=== PATIENT | female | born 1945 | race Caucasian/White ===

== ENCOUNTER 2023-01-03 11:39 | Emergency (ER) | payer MEDICARE, OTHER, SELFPAY ==
[2023-01-03] VITALS (14 sets, daily range): BP systolic 139–166; BP diastolic 64–97; PULSE 58–68; RESP 16; TEMP 36.6; O2SAT 97–100; BMI 23.2
--- NOTE | 2023-01-03 11:50 | ED.GENADULT ---
HPI - General Adult General Time Seen by Provider: 11:50 Date Seen: 01/03/23 Chief complaint: Chest Pain Stated complaint: Chest/left arm pain Time Seen by Provider: 01/03/23 11:42 Source: patient, RN notes reviewed and old records reviewed Mode of arrival: ambulatory Limitations: no limitations History of Present Illness HPI narrative: 77-year-old female history of high cholesterol and hypertension who presents today with chest pain. Patient presents with about 1 week of intermittent chest pain that is on the left side and radiating to the left neck a little bit in the left shoulder, accompanied by shortness of breath. No nausea vomiting. Last for several hours at a time. Seems to be worse in the evenings, not related to eating, walking, or breathing. Denies headache, lower extremity swelling. Has not taken anything for her symptoms. No prior cardiac history. Related Data Home Medications Medication Instructions Recorded Confirmed atorvastatin 40 mg tablet 40 mg PO DAILY 01/03/23 01/03/23 losartan 50 mg tablet 50 mg PO DAILY 01/03/23 01/03/23 metoprolol tartrate 50 mg tablet 50 mg PO BID 01/03/23 01/03/23 mirtazapine 15 mg tablet 15 mg PO BID 01/03/23 01/03/23 potassium chloride 20 mEq 20 meq PO DAILY 01/03/23 01/03/23 tablet,extended release(part/cryst) Allergies Allergy/AdvReac Type Severity Reaction Status Date / Time penicillin G Allergy Unknown Verified 01/03/23 11:48 Review of Systems Status of ROS: Reports: 10 or more systems reviewed and unremarkable except as noted in History and below Exam Narrative: Exam Narrative: General: Well-developed and well-nourished, no acute distress Head: Atraumatic and normocephalic Eyes: Pupils are equal reactive, extraocular motions intact, conjunctiva clear ENT: External nose and ears are normal, posterior pharynx without erythema or exudate Neck: No midline cervical tenderness, full spontaneous range of motion the neck, trachea midline, no adenopathy Heart: Regular rate and rhythm no murmurs or thrills Lungs: Clear to auscultation bilaterally without wheezes or crackles Abdomen: Soft, nontender, nondistended with active bowel sounds Musculoskeletal: No tenderness, deformity, or edema Neurologic: Awake, alert, and oriented x3, no gross focal neurologic deficits, cranial nerves intact as tested Psych: Mood and affect are appropriate Skin: No rashes Const: Vital Signs, click to edit/add: Vital Signs - 24 hr 01/03/23 11:49 01/03/23 12:04 01/03/23 12:05 Temperature 97.8 F Pulse Rate 64 59 L Pulse Rate [Pulse Oximeter] 68 Respiratory Rate 16 Blood Pressure 148/97 H Blood Pressure [Le ft Upper Arm] 166/78 H Pulse Oximetry 99 97 98 01/03/23 12:15 01/03/23 12:30 01/03/23 12:32 Temperature Pulse Rate 64 60 61 Pulse Rate [Pulse Oximeter] Respiratory Rate Blood Pressure 146/64 H Blood Pressure [Le ft Upper Arm] Pulse Oximetry 98 98 98 Course Course ED Course: Patient seen examined, prior records reviewed. Patient presents today with mid chest pain that radiates into the left neck and shoulder. Not associated with activity, accompanied by shortness of breath and some lightheadedness. She denies recent illness, nausea vomiting. EKG is reassuring, symptoms are not reproducible. Patient has risk factors of age, hypertension, hyperlipidemia. Labs ordered if these are negative patient will need to be referred for stress test. Reevaluation(s) Time of Reevaluation #1: 13:17 Reevaluation #1: Labs independently interpreted by me with reassuring CBC, normal basic panel, negative troponin, normal BNP. Chest x-ray independently interpreted by me does not demonstrate any acute findings. Patient presents with chest pain accompanied by lightheadedness and shortness of breath with risk factors for acute coronary syndrome including hypertension and hyperlipidemia, HEART score 4. Discussed admission versus discharge with outpatient stress test with the patient. We discussed 6-week MACE risk of 12-16%. Patient would like to go home with follow-up. Given the fact that she has had 1 week of symptoms with negative troponin, repeat troponin will not be performed today and patient can be discharged. She should continue her normal medications and will be prescribed nitroglycerin as well. Vital Signs Vital signs: Initial Vital Signs Temperature 97.8 F 01/03/23 11:49 Temperature Source Temporal Artery Scan 01/03/23 11:49 Pulse Rate 68 01/03/23 11:49 Respiratory Rate 16 01/03/23 11:49 Blood Pressure 166/78 H 01/03/23 11:49 Blood Pressure Mean 107 H 01/03/23 11:49 Blood Pressure Position Supine 01/03/23 11:49 Pulse Oximetry 99 01/03/23 11:49 Vital Signs Temperature 97.8 F 01/03/23 11:49 Pulse Rate 68 01/03/23 11:49 Respiratory Rate 16 01/03/23 11:49 Blood Pressure 166/78 H 01/03/23 11:49 Pulse Oximetry 99 01/03/23 11:49 Temperature 97.8 F 01/03/23 11:49 Pulse Rate 61 01/03/23 12:32 Respiratory Rate 16 01/03/23 11:49 Blood Pressure 146/64 H 01/03/23 12:32 Pulse Oximetry 98 01/03/23 12:32 Medical Decision Making Medical Records Medical records reviewed: Yes I reviewed the patient's medical records Lab Data Lab results reviewed: Yes I reviewed the patient's lab results Labs: Lab Results 01/03/23 01/03/23 Range/Units 12:00 12:24 WBC 5.21 (4.50-11.00) K/uL RBC 3.29 L (4.00-5.20) m/uL Hgb 11.6 L (12.0-16.0) gm/dL Hct 34.6 (33.0-51.0) % MCV 105 H (80-100) fL MCH 35 H (26-34) pg MCHC 34 (32-36) gm/dL RDW Coeff of Marta 12.1 (11.5-15.5) % Plt Count 215 (140-440) K/uL Neut % (Auto) 60.6 (42.0-72.0) % Lymph % (Auto) 24.2 (20-44) % [place] % (Auto) 11.3 H (0.0-11.0) % Eos % (Auto) 2.5 (0.0-7.0) % Baso % (Auto) 1.2 (0.0-3.0) % Neut # (Auto) 3.16 (1.7-7.0) K/uL Lymph # (Auto) 1.26 (0.90-2.90) K/uL [place] # (Auto) 0.60 (0.00-0.90) K/UL Eos # (Auto) 0.13 (0.00-0.50) K/uL Baso # (Auto) 0.06 (0.00-0.30) K/uL Abs Immat Gran (auto) 0.01 (0.00-0.30) K/uL Imm/Tot Granulo (auto) 0.2 % Diff Slide Review Acceptable Review (Acceptable) Sodium 135 (135-149) mmol/L Potassium 4.1 (3.6-5.1) mmol/L Chloride 100 (96-114) mmol/L Carbon Dioxide 24 (20-32) mmol/L Anion Gap 11 (7-15) mEq/L BUN 10 (7-30) mg/dL Creatinine 0.6 (0.5-1.5) mg/dL Estimated Creat Clear 40.03 Estimated GFR 94 ml/min Glucose 108 (60-115) mg/dL Calcium 9.3 (8.4-10.6) mg/dL NT-Pro-B Natriuret Pep 146 pg/mL POC Troponin I 0.01 (0.01-0.04) ng/ml ECG Data Attestation: I personally reviewed and interpreted this ECG as follows: Prior ECG tracings: not available for review Interpretation: EKG independently interpreted by me performed at 10:41 a.m. demonstrates sinus rhythm with sinus arrhythmia, first-degree AV block, rate 62, no acute ST elevations or depressions, normal intervals, normal axis, QTC 412. No prior for comparison. Discharge Plan Discharge Clinical Impression: Chest pain, Hypertension Patient Disposition: Home, Self-Care Condition: Stable Instructions: Chest Pain (DC) Additional Instructions: Continue your usual medications. Follow-up with your primary care doctor. The hospital will call you to schedule your stress test. Return to the emergency department if you have worsening chest pain or other concerning symptoms. Activity Level: No strenuous activity Discharge Diet: Low Fat/Low Cholesterol Prescriptions: No Action losartan 50 mg tablet 50 mg PO DAILY atorvastatin 40 mg tablet 40 mg PO DAILY metoprolol tartrate 50 mg tablet 50 mg PO BID mirtazapine 15 mg tablet 15 mg PO BID potassium chloride 20 mEq tablet,ER particles/crystals 20 meq PO DAILY Follow Up/Referrals: Avinash Hanson MD [Referring] - Stand Alone Forms: [employer] Info Instructions
--- NOTE | 2023-01-03 12:01 | CRLHL7_ITS ---
For Patients: As a result of the Century Cures Act, medical imaging exams and procedure reports are released immediately into your electronic medical record. You may view this report before your referring provider. If you have questions, please contact your health care provider. Indication: Chest pain Comparison: None available. Technique: Single AP view chest Findings: There is hyperinflation and chronic interstitial change. There is no focal consolidation, effusion, or pneumothorax. The cardiomediastinal silhouette is within normal limits. The bony thorax is grossly intact. Impression: No acute cardiopulmonary abnormality. Dictated by Toni Dudley MD @ 01/03/2023 1:09:50 PM (Electronically Signed)
[2023-01-03] MEDS: ASPIRIN 81 MG TAB.CHEW 162 MG PO (12:10)
[2023-01-03 12:40] LABS: Basophils Absolute Auto 0.06 K/uL (0.00-0.30); Basophils Percent Auto 1.2 % (0.0-3.0); Eosinophils Absolute Auto 0.13 K/uL (0.00-0.50); Eosinophils Percent Auto 2.5 % (0.0-7.0); Hematocrit 34.6 % (33.0-51.0); Hemoglobin* 11.6 gm/dL (12.0-16.0); Immature Granulocytes Abs Auto 0.01 K/uL (0.00-0.30); Immature Granulocytes Pct Auto 0.2 %; Lymphocytes Absolute Auto 1.26 K/uL (0.90-2.90); Lymphocytes Percent Auto 24.2 % (20-44); Mean Corpuscular HGB Conc 34 gm/dL (32-36); Mean Corpuscular Hemoglobin 35 pg (26-34); Mean Corpuscular Volume 105 fL (80-100); Monocytes Percent Auto 11.3 % (0.0-11.0); Neutrophils Absolute Auto 3.16 K/uL (1.7-7.0); Neutrophils Percent Auto 60.6 % (42.0-72.0); Platelet Count* 215 K/uL (140-440); RDW Coefficient of Variation % 12.1 % (11.5-15.5); Red Blood Count 3.29 m/uL (4.00-5.20); White Blood Count* 5.21 K/uL (4.50-11.00)
[2023-01-03 12:42] LABS: Slide Review Reflex Yes
[2023-01-03 12:43] LABS: Troponin, Point-of-Care* 0.01 ng/ml (0.01-0.04)
[2023-01-03 12:51] LABS: Chloride* 100 mmol/L (96-114); Potassium* 4.1 mmol/L (3.6-5.1); Sodium* 135 mmol/L (135-149)
[2023-01-03 12:54] LABS: Anion Gap 11 mEq/L (7-15); Blood Urea Nitrogen* 10 mg/dL (7-30); Carbon Dioxide* 24 mmol/L (20-32); Creatinine* 0.6 mg/dL (0.5-1.5); Est. Creatinine Clearance* 40.03; Estimated Glomerular Filt Rate 94 ml/min
[2023-01-03 12:55] LABS: Calcium* 9.3 mg/dL (8.4-10.6); Glucose* 108 mg/dL (60-115)
[2023-01-03 13:03] LABS: Slide Review Acceptable Review (Acceptable)
[2023-01-03 13:04] LABS: NT Pro B Type NatriureticPept* 146 pg/mL
== END 2023-01-03 14:04 | disposition home or self-care (01) ==
PROVIDERS: Emergency Provider Family Medicine; PCP Family Medicine
DX: R07.9 Chest pain, unspecified (principal); I10 Essential (primary) hypertension
CPT/HCPCS: 36415; 71045; 80048; 83880; 84484; 85025; 93005; 99284; 99285; A9270

== ENCOUNTER 2023-01-06 00:33 | Emergency (ER) | payer MEDICARE, OTHER, SELFPAY ==
--- NOTE | 2023-01-06 00:41 | ED.GENADULT ---
HPI - General Adult General Time Seen by Provider: 00:41 Date Seen: 01/06/23 Chief complaint: Extremity Pain/Injury, Upper Stated complaint: Pain on L side into her arm Time Seen by Provider: 01/06/23 00:41 Source: patient, RN notes reviewed and old records reviewed Mode of arrival: ambulatory Limitations: no limitations History of Present Illness HPI narrative: 77-year-old female who presents today with chest pain and arm pain. Patient was seen for this same 3 days ago, had negative cardiac evaluation at that time and was referred for stress test. Returns today with ongoing symptoms mostly in the left arm today. She notes pain in the left trapezius and shoulder area that radiates down the arm. She denies weakness or coordination problems of the arm. She does not know left-sided chest pain today. She has no shortness of breath nausea vomiting. She took aspirin for this with no improvement. She does know she fell on the shoulder about a month ago and thinks the pain started than. Related Data Home Medications Medication Instructions Recorded Confirmed atorvastatin 40 mg tablet 40 mg PO DAILY 01/03/23 01/03/23 losartan 50 mg tablet 50 mg PO DAILY 01/03/23 01/03/23 metoprolol tartrate 50 mg tablet 50 mg PO BID 01/03/23 01/03/23 mirtazapine 15 mg tablet 15 mg PO BID 01/03/23 01/03/23 potassium chloride 20 mEq 20 meq PO DAILY 01/03/23 01/03/23 tablet,extended release(part/cryst) Previous Rx's Medication Instructions Recorded gabapentin 100 mg capsule 100 mg PO TID #90 caps 01/06/23 methylprednisolone 4 mg tablets in See Rx Instructions PO .COMPLEX 01/06/23 a dose pack (Medrol (Compa)) #21 ea Allergies Allergy/AdvReac Type Severity Reaction Status Date / Time penicillin G Allergy Unknown Verified 01/03/23 11:48 [facility] Social History Smoking Status: Never smoker How often do you have a drink containing alcohol: 2-3 times a week How often do you have six or more drinks on one occasion: Never AUDIT-C Alcohol total score: 3 Non-prescribed substance use: denies use Exam Narrative: Exam Narrative: General: well nourished , NAD Head: Atraumatic and normocephalic ENT: External ears and external nose are normal Eyes: Conjunctiva clear, pupils are equal reactive, external ocular motions are intact Neck: Full spontaneous range of motion of the neck Lungs: No respiratory distress Musculoskeletal: No tenderness or deformity Neurologic: Diffuse left trapezius tenderness. Pain in the left shoulder with internal and external rotation, forward flexion, and abduction. No weakness. Skin: No rashes Psych: Mood and affect are appropriate Const: Vital Signs, click to edit/add: Vital Signs - 24 hr 01/06/23 01:04 Temperature 98 F Pulse Rate [Pulse Oximeter] 69 Respiratory Rate 16 Blood Pressure [Ri ght Upper Arm] 190/92 H Pulse Oximetry 98 Oxygen Delivery Me thod Room Air Course Course ED Course: Patient seen and examined, prior records are reviewed. Patient comes in today with left shoulder, neck, and arm pain. She was seen a couple days ago with chest pain that she said radiated in the left side of her neck and left shoulder, however her symptoms today do not include the chest and patient denies associated shortness of breath or lightheadedness. She has tenderness of left trapezius, left shoulder on exam. She has some limited motion of the left shoulder due to pain. Symptoms are most consistent with rotator cuff injury today. X-ray of the left shoulders or ordered. Patient is given Toradol to help with her pain, anticipate discharge with Solu-Medrol and gabapentin, follow-up this week for stress test related to her prior visit. Reevaluation(s) Time of Reevaluation #1: 01:42 Reevaluation #1: Shoulder x-ray interpreted lead interpreted by me does not demonstrate any acute findings. Patient is stable for discharge with outpatient follow-up with orthopedics and for her stress test. Vital Signs Vital signs: Initial Vital Signs Temperature 98 F 01/06/23 01:04 Temperature Source Temporal Artery Scan 01/06/23 01:04 Pulse Rate 69 01/06/23 01:04 Respiratory Rate 16 01/06/23 01:04 Blood Pressure 190/92 H 01/06/23 01:04 Blood Pressure Mean 124 H 01/06/23 01:04 Blood Pressure Position Sitting 01/06/23 01:04 Pulse Oximetry 98 01/06/23 01:04 Oxygen Delivery Method Room Air 01/06/23 01:04 Vital Signs Temperature 98 F 01/06/23 01:04 Pulse Rate 69 01/06/23 01:04 Respiratory Rate 16 01/06/23 01:04 Blood Pressure 190/92 H 01/06/23 01:04 Pulse Oximetry 98 01/06/23 01:04 Oxygen Delivery Method Room Air 01/06/23 01:04 Temperature 98 F 01/06/23 01:04 Pulse Rate 69 01/06/23 01:04 Respiratory Rate 16 01/06/23 01:04 Blood Pressure 190/92 H 01/06/23 01:04 Pulse Oximetry 98 01/06/23 01:04 Oxygen Delivery Method Room Air 01/06/23 01:04 Discharge Plan Discharge Clinical Impression: Rotator cuff injury, Brachial plexus neuropathy Patient Disposition: Home, Self-Care Condition: Stable Instructions: Cervical Radiculopathy (ED), Rotator Cuff Injury Exercises (DC) Additional Instructions: Take gabapentin as prescribed, take Solu-Medrol as prescribed. Call the orthopedic clinic for follow-up this week at [phone] Activity Level: Activity as Tolerated Discharge Diet: Regular Prescriptions: New methylprednisolone [Medrol (Compa)] 4 mg tablets,dose pack See Rx Instructions .ROUTE .COMPLEX Qty: 21 0RF Rx Instructions: orally per package directions gabapentin 100 mg capsule 100 mg PO TID Qty: 90 0RF Rx Instructions: If pain is not well controlled with 1 capsule 3 times a day, and the medication is not making you too sleepy, you may increase to 2 tablets 3 times a day No Action losartan 50 mg tablet 50 mg PO DAILY atorvastatin 40 mg tablet 40 mg PO DAILY metoprolol tartrate 50 mg tablet 50 mg PO BID mirtazapine 15 mg tablet 15 mg PO BID potassium chloride 20 mEq tablet,ER particles/crystals 20 meq PO DAILY Follow Up/Referrals: Nancy Escudero DO [Primary Care Provider] - Stand Alone Forms: [employer] Info Instructions
[2023-01-06 01:04] VITALS: BP 190/92; PULSE 69; RESP 16; TEMP 36.6; O2SAT 98; BMI 23.2
--- NOTE | 2023-01-06 01:14 | CRLHL7_ITS ---
For Patients: As a result of the Century Cures Act, medical imaging exams and procedure reports are released immediately into your electronic medical record. You may view this report before your referring provider. If you have questions, please contact your health care provider. Indication: Left shoulder pain. Technique: Left shoulder 3 views. Comparison: None. Findings: Bones: Alignment is normal. No fractures or bone lesions. Joint spaces: No significant degenerative changes. Soft tissues: Unremarkable. Impression: Unremarkable left shoulder. No specific finding to explain pain. Dictated by Chilo Castrejon MD @ 01/06/2023 1:56:56 AM (Electronically Signed)
[2023-01-06] MEDS: KETOROLAC 30 MG/ML inj 15 MG IM (01:50)
[2023-01-06] MEDS: LIDOCAINE 5% PATCH 2 PATCH TRANSDERMA (01:54)
== END 2023-01-06 02:55 | disposition home or self-care (01) ==
LOC: ED 01:35
PROVIDERS: Emergency Provider Family Medicine; PCP Family Medicine
DX: G54.0 Brachial plexus disorders (principal); S46.012A Strain of muscle(s) and tendon(s) of the rotator cuff of left shoulder, initial encounter
CPT/HCPCS: 73030; 96372; 99284; A9270; J1885

== ENCOUNTER 2023-01-14 00:13 | Emergency (ER) | payer MEDICARE, OTHER, SELFPAY ==
[2023-01-14 00:20] VITALS: O2SAT 98
[2023-01-14 00:27] VITALS: BP 172/75; PULSE 68; RESP 18; TEMP 36.8; O2SAT 99; BMI 21.7
--- NOTE | 2023-01-14 00:35 | ED_ITS ---
HPI - General Adult General Chief complaint: Shoulder Injury/Pain Stated complaint: left shoulder arm pain Time Seen by Provider: 01/14/23 00:20 History of Present Illness HPI narrative: CC: Left Neck/ Shoulder Pain pt. has been seen here twice for same symptoms. worried she might be having a heart attack . denies n/v, diarrhea, fevers. 77-year-old woman presenting to the emergency department with concern of pain moving into her left neck and shoulder. Underlying history of cervical spinal arthrodesis and radiculopathy. It sounds that she is concerned that might be having a heart attack. She is not experiencing shortness of breath. No nausea. Does not have known cardiovascular disease. 1st question however posed to me is that she notes that has an MRI of the neck pending this week Saturday; in 3 days. She is wondering if can be modified to include left shoulder. She notes how she had a fracture of the right shoulder area (clavicle?) and ultimately had muscle growing between and it was missed until MRI. Sounds like Orthopedics placed the order for the MRI. Has been taking gabapentin up to 200 mg 3 times a day which has not been helping with pain. Also acetaminophen? Related Data Home Medications Medication Instructions Recorded Confirmed atorvastatin 40 mg tablet 40 mg PO DAILY 01/03/23 01/18/23 losartan 50 mg tablet 50 mg PO DAILY 01/03/23 01/18/23 metoprolol tartrate 50 mg tablet 50 mg PO BID 01/03/23 01/18/23 mirtazapine 15 mg tablet 15 mg PO BID 01/03/23 01/18/23 potassium chloride 20 mEq 20 meq PO DAILY 01/03/23 01/18/23 tablet,extended release(part/cryst) acetaminophen 500 mg tablet 500 mg PO Q6H PRN 01/18/23 01/18/23 (Tylenol Extra Strength) Previous Rx's Medication Instructions Recorded gabapentin 300 mg capsule 300 mg PO TID #60 caps 01/18/23 methylprednisolone 4 mg tablets in 4 mg PO PER PKG DIR #21 ea 01/24/23 a dose pack (Medrol (Compa)) Allergies Allergy/AdvReac Type Severity Reaction Status Date / Time Penicillins Allergy Mild Rash Verified 01/18/23 08:22 Review of Systems Status of ROS: Reports: 6 or more systems reviewed and unremarkable except as noted in History and below PFSH [facility] Medical History GI (gastrointestinal bleed) (2006) ?K92.2 - Gastrointestinal hemorrhage, unspecified (ICD-10) Benign positional vertigo ?H81.10 - Benign paroxysmal vertigo, unspecified ear (ICD-10) Rheumatoid arthritis ?M06.9 - Rheumatoid arthritis, unspecified (ICD-10) Surgical History Status post laparoscopic [place] fundoplication (~1989) ?Z98.890 - Other specified postprocedural states (ICD-10) History of arthroplasty of finger of left hand ?Z96.692 - Finger-joint replacement of left hand (ICD-10) History of arthroplasty of finger of right hand ?Z96.691 - Finger-joint replacement of right hand (ICD-10) History of bilateral cataract extraction ?Z98.41 - Cataract extraction status, right eye (ICD-10) ?Z98.42 - Cataract extraction status, left eye (ICD-10) History of excision of mass (06/2012) ?Z98.890 - Other specified postprocedural states (ICD-10) History of lumbar fusion (08/2012) ?Z98.1 - Arthrodesis status (ICD-10) History of hysterectomy ?Z90.710 - Acquired absence of both cervix and uterus (ICD-10) History of arthroscopy of right knee (02/2009) ?Z98.890 - Other specified postprocedural states (ICD-10) 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) ?Z96.651 - Presence of right artificial knee joint (ICD-10) History of esophagogastroduodenoscopy (EGD) (05/2007) ?Z98.890 - Other specified postprocedural states (ICD-10) History of cervical spinal arthrodesis (2001) ?Z98.1 - Arthrodesis status (ICD-10) History of laparoscopic cholecystectomy (07/10/13) ?Z90.49 - Acquired absence of other specified parts of digestive tract (ICD- 10) Social History Smoking Status: Never smoker How often do you have a drink containing alcohol: 2-3 times a week How often do you have six or more drinks on one occasion: Never AUDIT-C Alcohol total score: 3 Non-prescribed substance use: denies use Exam Narrative: Exam Narrative: Very pleasant. Seems little uncomfortable. Well-perfused peripherally. Rotation of her neck to about 30? to the left does cause more discomfort into the right shoulder/trapezial musculature. She is just a little weaker belting inspector strength on the left versus the right. DTRs were not tested. Symmetrical musculature. Lungs are clear. Heart in regular rate and rhythm. Left shoulder exam is without swelling or erythema. As she abduct to 90? begins to have more pain and assist with trapezius. Const: Vital Signs, click to edit/add: Vital Signs - 24 hr 01/14/23 00:20 01/14/23 00:27 01/14/23 02:41 Temperature 98.2 F 98.2 F Pulse Rate [Right Pulse Oximeter] 68 68 Respiratory Rate 18 18 Blood Pressure [Ri ght Upper Arm] 172/75 H 132/68 Pulse Oximetry 98 99 99 Oxygen Delivery Me thod Room Air Room Air 01/14/23 02:42 Temperature 98.2 F Pulse Rate [Right Pulse Oximeter] 68 Respiratory Rate 18 Blood Pressure [Ri ght Upper Arm] 132/68 Pulse Oximetry Oxygen Delivery Me thod Documenting provider has reviewed patient's vital signs: yes Course Vital Signs Vital signs: Initial Vital Signs Pulse Oximetry 98 01/14/23 00:20 Vital Signs Pulse Oximetry 98 01/14/23 00:20 Temperature 98.2 F 01/14/23 02:42 Pulse Rate 68 01/14/23 02:42 Respiratory Rate 18 01/14/23 02:42 Blood Pressure 132/68 01/14/23 02:42 Pulse Oximetry 99 01/14/23 02:41 Oxygen Delivery Method Room Air 01/14/23 02:41 Medical Decision Making MDM Narrative Medical decision making narrative: I think this is more cervical radiculopathy than any cardiovascular issue here. EKG reviewed as below. I understand why she might want evaluation of the shoulder as she is describing a missed diagnosis with prior injury on the right side. And she is pending this MRI. Not available at this time of night regardless. She does then ask if maybe she can receive an injection. Injection would be better directed following MRI if necessary. Discussed pain management that she has ready been doing. She does not really want opiates, does not tolerate. I think generally might be more comfortable or able to relax a for neck had some support in the form of soft collar temporarily. See patient discharge plan. Medical Records Medical records reviewed: Yes I reviewed the patient's medical records ECG Data Attestation: I personally reviewed and interpreted this ECG as follows: (Sinus rhythm. Rate of 61. First-degree AV block) Discharge Plan Discharge Clinical Impression: Cervical radiculopathy Patient Disposition: Home, Self-Care Condition: Improved Additional Instructions: I think it is okay to wear this soft collar for comfort here and there and maybe over this next week. If you would like your shoulder imaged in MRI as well, I would call to the provider who ordered the MRI for your neck. They have also evaluated your shoulder I believe. Can take 1 or 2 of your Valium before your MRI as prescribed. Otherwise gabapentin and acetaminophen as discussed. Prescriptions: No Action acetaminophen [Tylenol Extra Strength] 500 mg tablet 500 mg PO Q6H PRN gabapentin 300 mg capsule 300 mg PO TID Qty: 60 0RF losartan 50 mg tablet 50 mg PO DAILY atorvastatin 40 mg tablet 40 mg PO DAILY metoprolol tartrate 50 mg tablet 50 mg PO BID mirtazapine 15 mg tablet 15 mg PO BID potassium chloride 20 mEq tablet,ER particles/crystals 20 meq PO DAILY methylprednisolone [Medrol (Compa)] 4 mg tablets,dose pack 4 mg PO PER PKG DIR Qty: 21 0RF Follow Up/Referrals: Nancy Escudero DO [Primary Care Provider] - Stand Alone Forms: [employer] Info Instructions
[2023-01-14 02:41] VITALS: BP 132/68; PULSE 68; RESP 18; TEMP 36.8; O2SAT 99
[2023-01-14 02:42] VITALS: BP 132/68; PULSE 68; RESP 18; TEMP 36.8
== END 2023-01-14 02:42 | disposition home or self-care (01) ==
PROVIDERS: Emergency Provider Family Medicine; PCP Family Medicine
DX: M54.12 Radiculopathy, cervical region (principal)
CPT/HCPCS: 93005; 94761; 99283; 99284

== ENCOUNTER 2023-01-16 09:27 | Outpatient (CLI) | payer MEDICARE, OTHER, SELFPAY ==
--- NOTE | 2023-01-16 09:45 | MR_ITS ---
[address] [address] Phone:?[phone] Fax:?[phone] Referring Physician Information: Bryon Velez [address] [facility] [address] Phone:?[phone] Fax:?[phone] Patient:Dana Sullivan D.O.B:?1945 Sex:?Female Phone:?[phone] [facility] MRN:?[id number] Exam Date:?01/16/2023 EXAM: MR CERVICAL SPINE WITHOUT CONTRAST 1.5T CLINICAL INFORMATION: Cervical radiculopathy. History of previous fusion surgery. TECHNICAL INFORMATION: T1, T2 FSE, T2 GRE and STIR sagittal sections with T2 GRE and FSE axial sections at selected levels. COMPARISON IMAGES: No comparisons. INTERPRETATION:?Neurologic structures:?A 4 mm focus of increased signal intensity is seen within the central cord at C5. This is associated with cord compression most likely represents an area of cord edema or myelomalacia. No Chiari malformation or syrinx. No intradural mass. Normal vertebral artery flow voids. Alignment:?Spondylosis with lordotic alignment of the cervical vertebrae. T2-3 and T1-2: Normal intervertebral discs and facet joints. No stenosis or impingement. C7-T1: Spondylosis with mild dorsal bulging, moderate left facet arthropathy and no stenosis or impingement. C6-7 and C5-6: Advanced disc degeneration. Mild right and moderate left foraminal stenosis with uncovertebral arthrosis at each level. Facet joints normal. C4-5: Advanced disc degeneration with a 4 mm broad-based dorsal disc protrusion, a 3-4 mm spondylolisthesis, moderate narrowing of the central canal (midline AP diameter 6-7 mm) and mild broad-based ventral/dorsal cord compression. Moderately severe foraminal stenosis bilaterally with uncovertebral arthrosis and moderate bilateral facet arthropathy. C3-4: Moderate to advanced disc degeneration with advanced right and moderate left facet arthropathy and a 1-2 mm right rotatory spondylolisthesis. Mild to moderate central canal stenosis with mild ventral/dorsal cord compression on the left. Severe bilateral foraminal stenosis. C2-3: Spondylosis with mild dorsal bulging, mild bilateral facet arthropathy and no stenosis or impingement. Craniocervical junction:?Mild to moderate degenerative changes anteriorly at C1- 2. No degenerative or erosive changes within the lateral atlantoaxial nor within the cervico-occipital joints. Osseous structures and paraspinous soft tissues:?Sagittal STIR images show mild facet inflammation on the left at C7-T1 with facet subchondral marrow edema. No fracture or avulsion. No osteolytic or destructive bone lesion. No prevertebral soft tissue swelling and no paraspinous soft tissue mass. CONCLUSION: Advanced multilevel disc degeneration with significant findings as follows: 1. Moderate central canal stenosis at C4-5 with a 4 mm broad-based dorsal disc protrusion, a 3-4 mm degenerative spondylolisthesis, mild cord compression and associated myelomalacia. 2. Moderate central canal stenosis at L3-4 with minimal spondylolisthesis and mild ventral/dorsal cord compression on the left. 3. Foraminal stenosis, severe bilaterally at C4-5 and C3-4, and moderate on the left at C6-7 and C5-6. 4. Facet arthropathy, moderate to advanced bilaterally at C4-5 and C3-4, and moderate on the left at C7-T1 with associated facet inflammation at C7-T1. Electronically signed on 01/17/2023 1:05:00 PM by Raman Fuller M.D.
--- NOTE | 2023-01-16 10:30 | MR_ITS ---
[address] [address] Phone:?[phone] Fax:?[phone] Referring Physician Information: Bryon Velez [address] [facility] [address] Phone:?[phone] Fax:?[phone] Patient:Dana Sullivan D.O.B:?1945 Sex:?Female Phone:?[phone] [facility] MRN:?[id number] Exam Date:?01/16/2023 EXAM: MRI EXAMINATION OF THE LEFT SHOULDER CLINICAL INFORMATION: Left shoulder pain. History of injury. History of surgery. Possible rotator cuff tear. TECHNICAL INFORMATION: Coronal STIR as well as axial, sagittal and coronal PD and T2-weighted images acquired. No prior studies for comparison. INTERPRETATION: Bones: There is no Hill-Sachs impaction deformity. No other evidence for an occult fracture or osseous contusion. No other bone marrow edema pattern. Rotator Cuff: Series 9 image 6 as well as series 7 images 8 and 9 demonstrate a 0.6 cm AP by 0.5 cm mediolateral partial-thickness bursal sided tear involving the anterior fibers of the supraspinatus tendon insertion and appearing to involve one half of the tendon fiber thickness. The infraspinatus tendon is intact without tear or significant tendinopathy. The teres minor tendon is intact. The subscapularis tendon is intact. No appreciable rotator cuff muscle belly atrophy. Coracoacromial arch: There is no discrete subacromial osseous spur. The bony acromiohumeral interval is measuring 5 mm. There is no thickening identified of the coracoacromial ligament. Acromioclavicular joint: There is a mild appearance of AC joint DJD. No deformity of the underlying supraspinatus tendon. Mild to moderate thickening and edema signal involves the subacromial/subdeltoid bursa areas. Biceps tendon: The long head biceps tendon is intact and nondisplaced from the bicipital groove. There is a mild appearance of intra-articular tendinopathy. Glenohumeral joint and labrum: No significant glenohumeral joint effusion. No discrete loose body within the joint. Osteochondral surfaces appear relatively preserved. There is tearing identified through the superior aspect of the labrum. There is additional tearing through the posterior inferior aspect of the labrum. No discrete paralabral cyst is identified. CONCLUSION: 1. There is a small partial-thickness bursal sided tear involving the anterior fibers of the supraspinatus tendon insertion, involving one half of the tendon fiber thickness. 2. Mild AC joint DJD with mild to moderate narrowing of the acromiohumeral interval. Mild to moderate subacromial/subdeltoid bursitis. 3. Mild intra-articular long head biceps tendinopathy. 4. No appreciable glenohumeral chondromalacia. 5. There is tearing through the superior and posterior inferior labrum. KES Electronically signed on 01/16/2023 1:40:00 PM by Nate Munoz M.D.
== END 2023-01-16 09:28 | disposition home or self-care (01) ==
LOC: MRI 09:28
PROVIDERS: PCP Family Medicine; Visit Provider Physician Assistant Surgical
DX: M50.321 Other cervical disc degeneration at C4-C5 level (principal); M48.02 Spinal stenosis, cervical region; M48.061 Spinal stenosis, lumbar region without neurogenic claudication; M54.12 Radiculopathy, cervical region; M25.512 Pain in left shoulder; M75.52 Bursitis of left shoulder; M75.102 Unspecified rotator cuff tear or rupture of left shoulder, not specified as traumatic
CPT/HCPCS: 72141; 73221

== ENCOUNTER 2023-01-24 12:40 | Outpatient (CLI) | payer MEDICARE, OTHER, SELFPAY ==
[2023-01-24 13:37] VITALS: BP 150/80; PULSE 107; RESP 16
--- NOTE | 2023-01-24 13:48 | PM.ST ---
Stress Test Note Date Date of test: 01/24/23 Providers Primary care provider: Nancy Escudero Stress test physician: Shahriar Miller Stress Test Note Stress test ordered: Stress Echo Indication for test: Chest pain Results discussion: Patient is a very nice 77-year-old female who presents here for stress echo, as ordered by her physician. Indication for test is chest pain, I discussed with her the risks benefits and side effects and she would like to proceed, cardiac stress test medical history form is reviewed entirely. Pretest EKG shows normal sinus rhythm, with occasional PVCs. No acute ST wave changes are noted. Patient is exercised for a total time of 6 minutes 2nd, she had a metabolic equivalent of 7.3 Mets, with a maximum heart rate of 151 which is 122% of her maximum, test is terminated because of fulfillment of protocol. She did not have any ST wave changes suggestive of ischemia, subjectively she had no chest pain shortness of breath. Conditioning was felt to be good Impression: Negative electrographic portion of stress echo Follow up suggested: Await echo images these will be read by Cardiology, clinical correlation with these will be needed, patient was asymptomatic with no changes on the electrographic portion. She recovered back to normal, and left this testing facility in good condition.
== END 2023-01-24 13:39 | disposition home or self-care (01) ==
LOC: STRESS 12:41
PROVIDERS: PCP Family Medicine; Visit Provider Family Medicine
DX: R07.89 Other chest pain (principal)
CPT/HCPCS: 93016; 93325; 93351

== ENCOUNTER 2023-02-05 09:34 | Outpatient (CLI) | payer MEDICARE, OTHER, SELFPAY ==
--- NOTE | 2023-02-05 10:00 | CRLHL7_ITS ---
For Patients: As a result of the Century Cures Act, medical imaging exams and procedure reports are released immediately into your electronic medical record. You may view this report before your referring provider. If you have questions, please contact your health care provider. INDICATION: Cervical stenosis. COMPARISON: 01/16/2023. TECHNIQUE: Noncontrast CT cervical spine. FINDINGS: Normal facet alignment. Stable degenerative anterolisthesis of C3 on C4 and C4 on C5 measuring approximate 4 mm. No acute fractures. No prevertebral soft tissue swelling. Cervical spondylosis. C1-2: No spinal canal narrowing. C2-3: No spinal canal neural foraminal narrowing. C3-4: Grade 1 anterolisthesis. Disc degeneration. Loss disc height. Posterior disc bulge. No narrowing of spinal canal. Mild narrowing of the right neural foramen. No narrowing of left neural foramen. C4-5: Grade 1 anterolisthesis. Disc degeneration and posterior disc bulge or disc osteophyte complex. Mild narrowing of spinal canal. No narrowing of the right neural foramen. Moderate narrowing of the left neural foramen. C5-6: Advanced disc degeneration. Loss disc height. No spinal canal neural foraminal narrowing. C6-7: Advanced disc degeneration. No narrowing of spinal canal. Mild narrowing of bilateral foramina. C7-T1: No spinal canal or neural foraminal narrowing. Lung apices are clear. IMPRESSION: 1. Straightening of the normal cervical lordosis. Stable degenerative anterolisthesis of C3 on C4 and C4 on C5. Otherwise normal alignment. 2. No fractures. 3. Cervical spondylosis 4. At C4-5, mild narrowing of the spinal canal. Moderate narrowing of the left neural foramina. 5. At C6-7, mild narrowing of the bilateral neural foramina Please note that all CT scans at this facility use dose modulation, iterative reconstruction, and/or weight-based dosing when appropriate to reduce radiation dose to as low as reasonably achievable. Dictated by Antonio Dye MD @ 02/05/2023 1:09:05 PM (Electronically Signed)
== END 2023-02-05 09:35 | disposition home or self-care (01) ==
LOC: CT 09:35
PROVIDERS: PCP Family Medicine; Visit Provider Specialist
DX: M48.02 Spinal stenosis, cervical region (principal); M47.892 Other spondylosis, cervical region; M50.221 Other cervical disc displacement at C4-C5 level; M50.222 Other cervical disc displacement at C5-C6 level
CPT/HCPCS: 72125

== ENCOUNTER 2023-03-04 13:00 | Outpatient (RCR) | payer MEDICARE, OTHER, SELFPAY ==
--- NOTE | 2023-01-09 13:15 | PT.OPEX ---
Please review and sign the attached outpatient physical therapy evaluation completed on 01/09/23. Thank you. PT [facility] Eval PT [facility] Outpatient Eval Start: 01/09/23 07:23 Freq: Status: Active Protocol: Document 01/09/23 07:24 TLQ (Rec: 01/09/23 11:45 TLQ [id number]) E-signed By Mica Echeverria DPT Physical Therapy Outpatient Evaluation Insurance Information Recert Due Date 04/09/23 Insurance Name [employer],Medicare B Medical Diagnosis Radiculopathy, cervical M54.12 Unspecified disorder of synovium and tendon, left shoulder M67.912 Treating Diagnosis Pain in left shoulder M25.512 Cervical radiculopathy M54.12 Muscle weakness M62.81 Referring CHIP Velasquez Subjective Subjective Patient here to address upper arm and neck pain. States she has pain in her left arm but last night was really bad that she almost called the ambulance. Taking Gabapentin since Saturday, states this did not help with her pain last night. Pain in her arm goes from her shoulder all the way down to her hand. States she usually has a good pain tolerance. Also has neck pain that has been going on for quite a while. History of cervical fusion many years ago , unable to recall when. Fell about a month ago, fell flat on her face after tripping on a cement block at the grocery store, this is when her left arm pain began. Has fallen a few additional times since. Arm pain is worst at night, unable to recall any specific movements of her arm that reproduce pain. Prefers to sleep on her back or on her left side, tries sleeping with her arm out to the side. Unable to sleep more than a few hours per night due to pain in her LUE. Gets numbness in her arm, feels heavy to lift at the time of today's eval. Reports shoulder/neck pain bothers her more than the pain/numbness in her L hand. Patient has a stress echo scheduled for 01/24/23. Also has an MRI scheduled of cervical spine on 01/16/23. Imaging: X-ray of L shoulder performed at [facility] on 01/06/23 with the following impression Unremarkable left shoulder. No specific finding to explain pain. X-ray of cervical spine also performed on at [facility], does not yet have a radiology report, orthopedic note reported Significant spondylitic changes to the cervical spine. PMHx: cervical fusion, depression, hypertension, arthritis Pain Comments at best: 5/10 at worst: 10/10, at night location: [facility] Date of Last Physician Visit 01/08/23 Current Work Status Retired Preferred Name Xin Precautions Therapy Limitations/Systems Review Not Limited Objective Other/Pertinent Objective Cervical ROM: flexion 22 deg, extension 25 deg, lateral flexion 15 deg B, rotation L 25 deg/R 20 deg L shoulder AROM: flexion 75 deg, cervical/ shoulder pain abduction 55 deg, cervical/ shoulder pain internal rotation S1, painful external rotation unable to reach occiput, pain L shoulder PROM: WFL for flexion and abduction, muscle guarding present LUE sensation: intact to light touch TTP on L: cervical extensors, UT, supraspinatus, infraspinatus, subscapularis, proximal bicep tendon, bicep muscle belly Joint mobility: cervical mobility not assessed due to hx of fusion, pain with posterior glide, normal mobility Special tests: Quadrant test (+) for pain on L neck and superior shoulder Stockton-Mateusz (+) Pierce's test (+) Empty can test (+) for pain, able to hold against moderate resistance Lift-off test (+) for pain, able to lift-off Phalen's sign (+) numbness in first 3 digits Cervical strength: flexion 4- pain extension 3+ pain lateral flexion L 3+ pain, R 4 LUE Strength: Shoulder: flexion 3+ pain abduction 4- pain internal rotation 4- pain external rotation 3+ pain Elbow: flexion 4- pain extension 4- pain Wrist: flexion 4- wrist pain extension 4 wrist pain Milk Route Supervisor strength: L 16.67#, pain in shoulder/ neck R 29.3# (dominant hand) Functional Test Performed & Score SPADI: total score 83/130 pain 32/50, 64% disability 51/80, 63.75% Assessment Assessment/Impression Patient is a 77 year old female who presents to outpatient physical therapy today to address cervicalgia with radiculopathy and pain in her left shoulder. Patient has a history of cervical fusion but was unable to recall date of surgery, had neck pain but radicular symptoms are of newer onset since patient fell about a month ago. Patient reports numbness of L hand following median nerve distribution, positive reproduction of symptoms with Phalen's test. LUE sensation was intact to light touch today. Left shoulder pain began after patient fell, states she tripped over a cement block and fall forward onto her face , tried to catch herself with her arms. X-rays taken of L shoulder were negative for fracture. No concern of fracture following x-ray of cervical spine, MRI of cervical spine scheduled for 01/16/23. Patient demonstrates L shoulder AROM deficits today, related to pain and weakness of muscles as PROM is WFL for both shoulder flexion and abduction, muscle guarding present with PROM. Tender with palpation of rotator cuff and biceps today, also tender at L cervical paraspinals and UT. Symptoms limit patient's ability to complete functional tasks and upper body dressing per responses on SPADI which was administered today. Pain limits her ability to sleep at night, currently unable to sleep for more than a few hours total. Muscle weakness present in both cervical spine and LUE. Provided patient education today regarding sleeping position and use of pillows to provide LUE support . Instructed through initial HEP for shoulder mobility and cervical strength, provided with a printed HEP. Based on examination findings patient is appropriate for skilled physical therapy to reduce pain and address strength and mobility deficits. Primary Functional Limitations left-sided neck pain, L shoulder pain, numbness in L hand, muscle weakness, sleeping, L shoulder AROM, overhead reaching Plan of Care Rehabilitation Potential Fair Rehabilitation Potential Comments Hx of cervical fusion Physical Therapy Goals Within 6 visits: - Patient will report average total sleep duration >5 hours per night for improved quality of sleep. - L shoulder flexion AROM will increase to 100 degrees for improved ability to complete upper body dressing. - Patient will report improvement in L shoulder pain to <6/10. Within 12 visits: - Patient will report improved quality of sleep, waking <2x per night due to LUE/cervical symptoms. - Patient will demonstrated L shoulder AROM that is WFL. - SPADI score will improve to <69.8/130 (MCID 13.2 points) to indicate functional improvements of LUE. - Patient will adhere to HEP in order to manage symptoms at home. Treatment Plan/Direct Interventions Electrical Stimulation,Ice/ Cold/Vasopneumatic,Manual Therapy,Neuromuscular Re-ed, Self-Care/Home Management, Therapeutic Activities, Therapeutic Exercises Frequency/Duration 1x/week for 12 weeks Patient Will Be Discharged From Therapy Completion of LTG(s),Skills Plateau,Independent w/HEP, Independently Progressing Evaluation Billing Untimed Code Treatment Minutes 60 Complexity Low Certification Information Initial Certification Date 01/09/23 Ending Certification Date 04/09/23 Provider Signature Shows Agreement With POC & Medical Necessity Physician Signature & Date Requested Please Sign/Date Here Physician Comment/Change : Physician NPI Number #
== END 2023-06-07 11:02 | disposition home or self-care (01) ==
PROVIDERS: PCP Family Medicine; Visit Provider Physician Assistant Surgical
DX: M54.12 Radiculopathy, cervical region (principal); M67.912 Unspecified disorder of synovium and tendon, left shoulder; M25.512 Pain in left shoulder; M62.81 Muscle weakness (generalized); Z51.89 Encounter for other specified aftercare
CPT/HCPCS: 97110; 97140; 97161

== ENCOUNTER 2023-03-10 14:38 | Emergency (ER) | payer MEDICARE, OTHER, SELFPAY ==
[2023-03-10 15:01] VITALS: BP 182/78; PULSE 82; RESP 18; TEMP 36.8; O2SAT 97; BMI 23.4
[2023-03-10 15:17] LABS: Appearance Urine Clear (Clear); Bilirubin Urine Negative (Negative); Blood Urine Trace-intact (Negative); Color Urine Yellow (Yellow); Glucose Urine Negative (Negative); Ketones Urine Negative (Negative); Leukocyte Esterase Urine 1+ (Negative); Nitrite Urine Negative (Negative); Protein Urine Negative (Negative); Urobilinogen Urine 0.2 (0.2-1.0); pH Urine 5.5 (5.0-8.5)
--- NOTE | 2023-03-10 15:18 | ED.GENADULT ---
HPI - General Adult General Chief complaint: Urogenital Problems, Female Stated complaint: Suspected bladder infection post-surg Time Seen by Provider: 03/10/23 14:53 Source: patient Mode of arrival: ambulatory Limitations: no limitations History of Present Illness HPI narrative: Patient is a rachel 77-year-old female coming in today complaining of increased urinary frequency and dysuria. Patient states that she has a history of UTIs and this feels her reminiscent of her last 1 which was about a month ago. She is postop day 4 were status post cervical spinal fusion which went well. She was discharged home on postop day 1. She denies any fevers or chills. States that her neck is sore but that is expected and she has no worsening pain. She states that she did not have a catheter placed during surgery. She denies any blood in her urine. No nausea or vomiting. She denies any flank pain. She has mild abdominal discomfort. Related Data Home Medications Medication Instructions Recorded Confirmed atorvastatin 40 mg tablet 40 mg PO DAILY 01/03/23 03/10/23 losartan 50 mg tablet 50 mg PO DAILY 01/03/23 03/10/23 metoprolol tartrate 50 mg tablet 50 mg PO BID 01/03/23 03/10/23 mirtazapine 15 mg tablet 15 mg PO BID 01/03/23 03/10/23 potassium chloride 20 mEq 20 meq PO DAILY 01/03/23 03/10/23 tablet,extended release(part/cryst) acetaminophen 500 mg tablet 500 mg PO Q6H PRN 01/18/23 03/10/23 (Tylenol Extra Strength) gabapentin 300 mg capsule 300 mg PO TID PRN 03/10/23 03/10/23 Previous Rx's Medication Instructions Recorded cephalexin 500 mg capsule 500 mg PO TID 5 days #15 caps 03/10/23 Allergies Allergy/AdvReac Type Severity Reaction Status Date / Time Penicillins Allergy Mild Rash Verified 03/10/23 15:07 Review of Systems Status of ROS: Reports: 10 or more systems reviewed and unremarkable except as noted in History and below [facility] Medical History GI (gastrointestinal bleed) (2006) ?K92.2 - Gastrointestinal hemorrhage, unspecified (ICD-10) Benign positional vertigo ?H81.10 - Benign paroxysmal vertigo, unspecified ear (ICD-10) Rheumatoid arthritis ?M06.9 - Rheumatoid arthritis, unspecified (ICD-10) Surgical History Status post laparoscopic Isrrael fundoplication (~1989) ?Z98.890 - Other specified postprocedural states (ICD-10) History of arthroplasty of finger of left hand ?Z96.692 - Finger-joint replacement of left hand (ICD-10) History of arthroplasty of finger of right hand ?Z96.691 - Finger-joint replacement of right hand (ICD-10) History of bilateral cataract extraction ?Z98.41 - Cataract extraction status, right eye (ICD-10) ?Z98.42 - Cataract extraction status, left eye (ICD-10) History of excision of mass (06/2012) ?Z98.890 - Other specified postprocedural states (ICD-10) History of lumbar fusion (08/2012) ?Z98.1 - Arthrodesis status (ICD-10) History of hysterectomy ?Z90.710 - Acquired absence of both cervix and uterus (ICD-10) History of arthroscopy of right knee (02/2009) ?Z98.890 - Other specified postprocedural states (ICD-10) 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) ?Z96.651 - Presence of right artificial knee joint (ICD-10) History of esophagogastroduodenoscopy (EGD) (05/2007) ?Z98.890 - Other specified postprocedural states (ICD-10) History of cervical spinal arthrodesis (2001) ?Z98.1 - Arthrodesis status (ICD-10) History of laparoscopic cholecystectomy (07/10/13) ?Z90.49 - Acquired absence of other specified parts of digestive tract (ICD-10) Social History Smoking Status: Never smoker How often do you have a drink containing alcohol: 2-3 times a week How often do you have six or more drinks on one occasion: Never AUDIT-C Alcohol total score: 3 Non-prescribed substance use: denies use Exam Narrative: Exam Narrative: Well-nourished well-developed patient in no acute distress. Alert and oriented. Answers questions appropriately. Mood and affect are appropriate. Thoughts are goal oriented and rational. No tangential or magical thinking noted. Patient speaks in full sentences without needing to catch her breath. Well groomed, does not appear ill or toxic. HEENT: Normocephalic atraumatic. Pupils are equally round reactive to light. Extraocular muscles are intact. Conjunctivae are moist without any icterus noted. Moist mucous membranes. Abdomen: Mild suprapubic discomfort. Normal bowel sounds. Const: Vital Signs, click to edit/add: Vital Signs - 24 hr 03/10/23 15:01 Temperature 98.2 F Pulse Rate [Pulse Oximeter] 82 Respiratory Rate 18 Blood Pressure [Ri ght Upper Arm] 182/78 H Pulse Oximetry 97 Oxygen Delivery Me thod Room Air Course Course ED Course: UA shows 1+ leukocyte esterase and trace blood. Did discuss that the urine was not overly pointing to infection, however the patient is quite clear that she is very symptomatic. Because of this we will put her on Keflex t.i.d. for 5 days. I do recommend she perhaps stop taking the antibiotics if her culture comes back negative. And follow-up with her primary care provider instead. Patient was in agreement and had no other questions. Vital Signs Vital signs: Initial Vital Signs Temperature 98.2 F 03/10/23 15:01 Temperature Source Temporal Artery Scan 03/10/23 15:01 Pulse Rate 82 03/10/23 15:01 Respiratory Rate 18 03/10/23 15:01 Blood Pressure 182/78 H 03/10/23 15:01 Blood Pressure Mean 112 H 03/10/23 15:01 Blood Pressure Position Sitting 03/10/23 15:01 Pulse Oximetry 97 03/10/23 15:01 Oxygen Delivery Method Room Air 03/10/23 15:01 Vital Signs Temperature 98.2 F 03/10/23 15:01 Pulse Rate 82 03/10/23 15:01 Respiratory Rate 18 03/10/23 15:01 Blood Pressure 182/78 H 03/10/23 15:01 Pulse Oximetry 97 03/10/23 15:01 Oxygen Delivery Method Room Air 03/10/23 15:01 Temperature 98.2 F 03/10/23 15:01 Pulse Rate 82 03/10/23 15:01 Respiratory Rate 18 03/10/23 15:01 Blood Pressure 182/78 H 03/10/23 15:01 Pulse Oximetry 97 03/10/23 15:01 Oxygen Delivery Method Room Air 03/10/23 15:01 Medical Decision Making MDM Narrative Medical decision making narrative: UTI-plan per above. Lab Data Lab results reviewed: Yes I reviewed the patient's lab results Labs: Lab Results 03/10/23 Range/Units 15:10 Urine Color Yellow (Yellow) Urine Appearance Clear (Clear) Urine pH 5.5 (5.0-8.5) Ur Specific [place] 1.020 (1.000-1.030) Urine Protein Negative (Negative) Urine Glucose (UA) Negative (Negative) Urine Ketones Negative (Negative) Urine Blood Trace-intact A (Negative) Urine Nitrite Negative (Negative) Urine Bilirubin Negative (Negative) Urine Urobilinogen 0.2 (0.2-1.0) Ur Leukocyte Esterase 1+ A (Negative) Urine RBC 0-2 (0-2) Urine WBC 2-5 (0-5) Ur Squamous Epith Cells Few (None-Few) Urine Bacteria Moderate A (None) Discharge Plan Discharge Clinical Impression: Urinary tract infection Patient Disposition: Home, Self-Care Condition: Stable Additional Instructions: Take all antibiotics as prescribed. Increase fluid intake for the next few days. Follow-up if you feel like you are getting worse instead of better over the next couple of days. [facility] Pres[facility]: New cephalexin 500 mg capsule 500 mg PO TID 5 Days Qty: 15 0RF No Action acetaminophen [Tylenol Extra Strength] 500 mg tablet 500 mg PO Q6H PRN losartan 50 mg tablet 50 mg PO DAILY atorvastatin 40 mg tablet 40 mg PO DAILY metoprolol tartrate 50 mg tablet 50 mg PO BID mirtazapine 15 mg tablet 15 mg PO BID potassium chloride 20 mEq tablet,ER particles/crystals 20 meq PO DAILY gabapentin 300 mg capsule 300 mg PO TID PRN Follow Up/Referrals: Nancy Escudero DO [Primary Care Provider] - Stand Alone Forms: [employer] Info Instructions
[2023-03-10 15:28] LABS: Bacteria Urine Moderate; RBC Urine 0-2 (0-2); Squamous Epithelial Cell Urine Few (None-Few)
== END 2023-03-10 15:43 | disposition home or self-care (01) ==
LOC: ED 15:30
PROVIDERS: Emergency Provider Family Medicine; PCP Family Medicine
DX: N39.0 Urinary tract infection, site not specified (principal)
CPT/HCPCS: 81001; 87086; 87186; 95992; 99283

== ENCOUNTER 2023-05-22 11:59 | Emergency (ER) | payer MEDICARE, OTHER, SELFPAY ==
[2023-05-22] VITALS (9 sets, daily range): BP systolic 151–201; BP diastolic 72–140; PULSE 58–66; RESP 14–18; TEMP 36.5; O2SAT 97–98; BMI 22.3
--- NOTE | 2023-05-22 12:10 | ED_ITS ---
HPI - General Adult General Chief complaint: Neuro Symptoms/Altered Deficit Stated complaint: Faint, blurred vision, short of breath Time Seen by Provider: 05/22/23 12:10 History of Present Illness HPI narrative: Patient reports sitting in a chair at home when she suddenly had blurred vision, felt limp all over and sensation that her blood pressure was belen high. This started at about 1110 and lasted for about 40 minutes. Patient now reports feeling improved but not herself. Still reports blurred vision but is able to read print from across room. 77-year-old woman presenting to the emergency department after nursing triage stroke code as activated. About an hour prior to presentation was sitting watching television when had loss of vision clarity not full blackness for about 45 minutes. Reports that this was dense. Still feels like it is not right. (clarifies later that this was affecting both eyes; not monocular) This was also accompanied by dizziness. She then suspected her blood pressure to be quite elevated. No chest pain or shortness of breath. She however felt weak all over. Otherwise was usual state of health. She is not anticoagulated. Not having headache. Years ago reports suspected ?mini-stroke? but does not recall whether non MRI was ever done. She says ?they didn't find anything arrives with initial blood pressure of approximately 200/100. Checked and 188/79 and when I reassess few minutes later 170s over 80s. She mentions frequently wondering how much of this might be just related to her neck surgery. Related Data Home Medications Medication Instructions Recorded Confirmed atorvastatin 40 mg tablet 40 mg PO DAILY 01/03/23 03/10/23 losartan 50 mg tablet 50 mg PO DAILY 01/03/23 03/10/23 metoprolol tartrate 50 mg tablet 50 mg PO BID 01/03/23 03/10/23 mirtazapine 15 mg tablet 15 mg PO BID 01/03/23 03/10/23 potassium chloride 20 mEq 20 meq PO DAILY 01/03/23 03/10/23 tablet,extended release(part/cryst) acetaminophen 500 mg tablet 500 mg PO Q6H PRN 01/18/23 03/10/23 (Tylenol Extra Strength) gabapentin 300 mg capsule 300 mg PO TID PRN 03/10/23 03/10/23 Previous Rx's Medication Instructions Recorded cephalexin 500 mg capsule 500 mg PO TID 5 days #15 caps 03/10/23 diazepam 5 mg tablet (Valium) 2.5 - 5 mg (0.5 - 1 x 5 mg) PO BID 05/22/23 PRN dizziness #5 tabs meclizine 25 mg tablet 25 mg PO TID #12 tabs 05/22/23 Allergies Allergy/AdvReac Type Severity Reaction Status Date / Time Penicillins Allergy Mild Rash Verified 03/10/23 15:07 Review of Systems Status of ROS: Reports: 6 or more systems reviewed and unremarkable except as noted in History and below PFSH [facility] Medical History GI (gastrointestinal bleed) (2006) ?K92.2 - Gastrointestinal hemorrhage, unspecified (ICD-10) Benign positional vertigo ?H81.10 - Benign paroxysmal vertigo, unspecified ear (ICD-10) Rheumatoid arthritis ?M06.9 - Rheumatoid arthritis, unspecified (ICD-10) Surgical History Status post laparoscopic Isrrael fundoplication (~1989) ?Z98.890 - Other specified postprocedural states (ICD-10) History of arthroplasty of finger of left hand ?Z96.692 - Finger-joint replacement of left hand (ICD-10) History of arthroplasty of finger of right hand ?Z96.691 - Finger-joint replacement of right hand (ICD-10) History of bilateral cataract extraction ?Z98.41 - Cataract extraction status, right eye (ICD-10) ?Z98.42 - Cataract extraction status, left eye (ICD-10) History of excision of mass (06/2012) ?Z98.890 - Other specified postprocedural states (ICD-10) History of lumbar fusion (08/2012) ?Z98.1 - Arthrodesis status (ICD-10) History of hysterectomy ?Z90.710 - Acquired absence of both cervix and uterus (ICD-10) History of arthroscopy of right knee (02/2009) ?Z98.890 - Other specified postprocedural states (ICD-10) 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) ?Z96.651 - Presence of right artificial knee joint (ICD-10) History of esophagogastroduodenoscopy (EGD) (05/2007) ?Z98.890 - Other specified postprocedural states (ICD-10) History of cervical spinal arthrodesis (2001) ?Z98.1 - Arthrodesis status (ICD-10) History of laparoscopic cholecystectomy (07/10/13) ?Z90.49 - Acquired absence of other specified parts of digestive tract (ICD- 10) Social History Smoking Status: Never smoker How often do you have a drink containing alcohol: 2-3 times a week How often do you have six or more drinks on one occasion: Never AUDIT-C Alcohol total score: 3 Non-prescribed substance use: denies use Exam Narrative: Exam Narrative: General a little tremulous. Easily conversant. NIH stroke score 0 GCS 15. She is not slurring her words. Cranial nerves 2-12 look to be intact. There may be subtle left beating nystagmus. Extraocular movements are full. Head is atraumatic. Neck is supple though limited in head impulse testing due to neck pain. No swelling or erythema about the neck. She notes February of this last year a cervical fusion. She is able to read print accurately from across the room. Does not appear to have loss of visual lewis. Heart in slower rate but regular rhythm. Murmur rub or gallop identified. Abdomen is soft nontender. Little hesitant but moving all extremities without difficulty. Const: Vital Signs, click to edit/add: Vital Signs - 24 hr 05/22/23 12:07 05/22/23 12:11 05/22/23 12:15 Temperature Pulse Rate Pulse Rate [Pulse Oximeter] 66 Respiratory Rate 18 18 Blood Pressure Blood Pressure [Ri ght Upper Arm] 188/79 H 201/101 H 170/140 H Pulse Oximetry 98 Oxygen Delivery Me thod Room Air 05/22/23 12:24 05/22/23 12:30 05/22/23 13:00 Temperature 97.7 F Pulse Rate Pulse Rate [Pulse Oximeter] 58 L 61 60 Respiratory Rate 17 17 17 Blood Pressure Blood Pressure [Ri ght Upper Arm] 188/79 H 174/80 H 174/77 H Pulse Oximetry 98 98 98 Oxygen Delivery Me thod Room Air 05/22/23 13:30 05/22/23 15:00 Temperature Pulse Rate 61 Pulse Rate [Pulse Oximeter] 66 Respiratory Rate 16 18 Blood Pressure 153/72 H Blood Pressure [Ri ght Upper Arm] 151/72 H Pulse Oximetry 98 97 Oxygen Delivery Me thod Room Air Documenting provider has reviewed patient's vital signs: yes Course Vital Signs Vital signs: Initial Vital Signs Blood Pressure 188/79 H 05/22/23 12:07 Blood Pressure Mean 115 H 05/22/23 12:07 Vital Signs Blood Pressure 188/79 H 05/22/23 12:07 Temperature 97.7 F 05/22/23 12:24 Pulse Rate 61 05/22/23 15:45 Respiratory Rate 14 05/22/23 15:45 Blood Pressure 161/75 H 05/22/23 15:45 Pulse Oximetry 97 05/22/23 15:45 Oxygen Delivery Method Room Air 05/22/23 13:30 Medications Administered Medications: Discontinued Medications Generic Name Dose Route Start Last Admin Trade Name Freq PRN Reason Stop Dose Admin Diazepam 2.5 mg 05/22/23 12:26 05/22/23 16:28 Diazepam 5 Mg/Ml Inj IV 05/22/23 12:27 Not Given ONCE ONE Sodium Chloride 1,000 mls @ 1,000 mls/hr 05/22/23 12:26 05/22/23 14:00 0.9 % Sodium Chloride 1000 Ml IV 05/22/23 13:25 Infused .Q1H ONE Infusion Ondansetron HCl 4 mg 05/22/23 12:26 05/22/23 13:00 Ondansetron 2 Mg/Ml Inj IVP 05/22/23 12:27 4 mg ONCE ONE Administration Medical Decision Making MDM Narrative Medical decision making narrative: Story is a little unusual for a CVA. I am concerned about elevated blood pressure. Anxiety certainly driving some symptoms. Does not sound as though the dizziness was preceded by any particular movement. I would have concerns about cerebrovascular event here. Spend more time in conversation prior to moving to CT as somewhat subtle findings/presentation. But initiating non contrasted head CT on recommendation after conversation with Neurology. Pending normal head CT, recommendations were for follow-up MRI. It considering possible peripheral component, peripheral vertigo, will give some Valium. IV fluids. Labs are pending. Does not appear to be in arrhythmia. Head CT reviewed by me looks to be unremarkable for acute abnormality. On reassessment she is verifying that dizziness is not only associated with head movement but is persistent at rest and with her eyes closed. Further concerns of CVA for me. Reaching back to Neurology and anticipating vascular studies. I have ordered IV contrasted head and neck imaging per stroke protocol pending repeat conversation with Neurology. Has spoken with stroke neuro again. Still preferring to have brain MRI which we are going to do right now. Understandably not lytic candidate with existing stroke score. 1415 --On reassessment is feeling improved. Same symptoms still present but appear to be considerably less. Radiology over-read of MRI is reassuring. See read below. Final Report: INDICATION: Dizziness. Altered vision. TECHNIQUE: Multiplanar multisequence noncontrast MR images of the brain. COMPARISON: CT brain 05/22/2023. FINDINGS: Prominence the ventricles and sulci compatible with mild diffuse cerebral volume loss. No mass effect or midline shift. Scattered FLAIR hyperintensities in the supratentorial white matter, typical for mild chronic microvascular ischemic changes. No intracranial hemorrhage or pathologic extra-axial fluid collection. No diffusion restriction to suggest acute infarction. The major arterial flow voids of the skullbase are preserved. Thinning of the ocular lenses. [id number] paranasal sinus mucosal thickening. Small to moderate left and small right mastoid effusions. IMPRESSION: 1. No acute infarction, mass effect, or intracranial hemorrhage. 2. Mild chronic microvascular ischemic changes and diffuse cerebral volume loss. On reassessment over time Xin is further improved. Seems relieved. No events on court recording monitor This would appear to be a peripheral vertiginous issue. See patient discharge plan Lab Data Lab results reviewed: Yes I reviewed the patient's lab results Labs: Lab Results 05/22/23 05/22/23 05/22/23 Range/Units 12:24 12:57 12:58 WBC 5.28 (4.50-11.00) K/uL RBC 3.78 L (4.00-5.20) m/uL Hgb 12.9 (12.0-16.0) gm/dL Hct 38.0 (33.0-51.0) % MCV 101 H (80-100) fL MCH 34 (26-34) pg MCHC 34 (32-36) gm/dL RDW Coeff of Marta 14.4 (11.5-15.5) % Plt Count 167 (140-440) K/uL Neut % (Auto) 62.3 (42.0-72.0) % Lymph % (Auto) 23.9 (20-44) % Crisp % (Auto) 8.3 (0.0-11.0) % Eos % (Auto) 4.5 (0.0-7.0) % Baso % (Auto) 0.8 (0.0-3.0) % Neut # (Auto) 3.29 (1.7-7.0) K/uL Lymph # (Auto) 1.26 (0.90-2.90) K/uL Crisp # (Auto) 0.40 (0.00-0.90) K/UL Eos # (Auto) 0.24 (0.00-0.50) K/uL Baso # (Auto) 0.04 (0.00-0.30) K/uL Abs Immat Gran (auto) 0.01 (0.00-0.30) K/uL Imm/Tot Granulo (auto) 0.2 % INR 1.06 (0.91-1.10) APTT 28 (23-33) Seconds Sodium 133 L (135-149) mmol/L Potassium 4.2 (3.6-5.1) mmol/L Chloride 99 (96-114) mmol/L Carbon Dioxide 23 (20-32) mmol/L Anion Gap 11 (7-15) mEq/L BUN 14 (7-30) mg/dL Creatinine 0.7 (0.5-1.5) mg/dL Estimated Creat Clear 36.68 Estimated GFR 90 ml/min Glucose 113 (60-115) mg/dL Calcium 9.7 (8.4-10.6) mg/dL Magnesium 2.1 (1.5-2.6) mg/dL Troponin I < 0.01 L (0.01-0.04) ng/mL C-Reactive Protein < 0.5 L (0.5-1.0) mg/dL NT-Pro-B Natriuret Pep 155 pg/mL SARS-CoV-2 (PCR) Negative SARS-CoV-2 (Negative) Influenza Type A (PCR) Negative PCR FLU A (Negative) Influenza Type B (PCR) Negative PCR FLU B (Negative) POC Troponin I 0.00 L (0.01-0.04) ng/ml ECG Data Attestation: I personally reviewed and interpreted this ECG as follows: (Sinus rhythm. First-degree AV block does appear to be present. Rate of 60. No acute ischemic changes appreciated) Critical Care Time Critical Care Time Critical Care Time: Yes Attestation: The patient required my highest level preparedness to intervene emergently and I personally spent this critical care time directly and personally managing the patient. This critical care time included: Obtaining a history; Examining the patient; Pulse oximetry; Ordering and reviewing of studies; Arranging urgent treatment with development of a management plan; Evaluation of patients response to treatment; Frequent reassessment discussions with other providers. This critical care time was performed to assess and manage the high probability of imminent life-threatening deterioration that could result in multiorgan failure. It was exclusive of separate billable procedures and treating other patients and teaching time. Total Critical Care Time in Minutes: 70 Discharge Plan Discharge Clinical Impression: Peripheral vertigo, Alteration in vision Patient Disposition: Home w/ Parent or Adult Condition: Improved Additional Instructions: It is certainly possible that some of the symptoms were triggered by some discomfort in your neck. I am glad you have a follow-up coming up shortly. These symptoms can also be caused by inflammation or irritation in the inner ear as discussed. I am happy at this point you are feeling better. Focus on hydration. Take care in transitions. You might take this meclizine 3 times daily regularly over the next 4 days if it does not make you too tired. For more intense dizzy symptoms that are clearly reproducible with movement and go away with rest, could try 1/2-1 tab of prescribed Valium. This can also make you tired/sleepy. If not improved in an hour or 2 I would return to the emergency department. Return also for new and persistent shortness of breath, severe headache, intractable vomiting, chest pain. Prescriptions: New meclizine 25 mg tablet 25 mg PO TID Qty: 12 0RF diazepam [Valium] 5 mg tablet 2.5 - 5 mg PO BID PRN (Reason: dizziness) Qty: 5 0RF No Action acetaminophen [Tylenol Extra Strength] 500 mg tablet 500 mg PO Q6H PRN losartan 50 mg tablet 50 mg PO DAILY atorvastatin 40 mg tablet 40 mg PO DAILY metoprolol tartrate 50 mg tablet 50 mg PO BID mirtazapine 15 mg tablet 15 mg PO BID potassium chloride 20 mEq tablet,ER particles/crystals 20 meq PO DAILY gabapentin 300 mg capsule 300 mg PO TID PRN cephalexin 500 mg capsule 500 mg PO TID 5 Days Qty: 15 0RF Follow Up/Referrals: Nancy Escudero DO [Primary Care Provider] - Stand Alone Forms: [facility] Info Instructions
--- NOTE | 2023-05-22 12:21 | CT_ITS ---
Patient: MIKE AIKEN Facility:?[facility] Patient ID:?[id number] Site Patient ID:?[id number]. Site :?[id number] Study:?CT-Head w/o Contrast CODE STROKE-05/22/2023 12:33:49 PM Ordering Physician:Jag Jiménez Final Report: INDICATION: Dizziness and vision loss TECHNIQUE: CT head without contrast. COMPARISON: Head CT 11/19/2011 FINDINGS: CSF spaces: Within normal limits for age. Brain parenchyma: The gonzales-white differentiation is normal. No sign of mass, hemorrhage, or midline shift. Skull base and calvarium: Mucosal thickening and patchy opacification paranasal sinuses. Right temporomandibular joint osteoarthritis. The visualized orbits are grossly unremarkable. No skull fractures. Atherosclerosis. IMPRESSION: Unremarkable noncontrast head CT. Please note that all CT scans at this facility use dose modulation, iterative reconstruction, and/or weight-based dosing when appropriate to reduce radiation dose to as low as reasonably achievable. Dictated by Pedro Luis Perez MD @ 05/22/2023 12:56:54 PM ----- ADDENDUM ----- Dr. Li paged at 12:57 on 05/22/2023. Results confirmed to Dr. Garcia at 1300 on 05/22/2023. Dictated by Pedro Luis Perez MD @ May 22 2023 1:06PM Signed by:?Pedro Luis Perez MD @05/22/2023 12:56:54 PM (Electronic Signature)
[2023-05-22] MEDS: ONDANSETRON 2 MG/ML inj 4 MG IVP (13:00)
[2023-05-22] MEDS: 0.9 % SODIUM CHLORIDE 1000 ml 1,000 ML IV (13:00)
--- NOTE | 2023-05-22 13:12 | MR_ITS ---
Patient: MIKE AIKEN Facility:?[facility] Patient ID:?[id number] Site Patient ID:?[id number]. Site :?[id number] Study:?MRI-Head W/O-05/22/2023 3:09:51 PM Ordering Physician:ODELL GARDNER Final Report: INDICATION: Dizziness. Altered vision. TECHNIQUE: Multiplanar multisequence noncontrast MR images of the brain. COMPARISON: CT brain 05/22/2023. FINDINGS: Prominence the ventricles and sulci compatible with mild diffuse cerebral volume loss. No mass effect or midline shift. Scattered FLAIR hyperintensities in the supratentorial white matter, typical for mild chronic microvascular ischemic changes. No intracranial hemorrhage or pathologic extra-axial fluid collection. No diffusion restriction to suggest acute infarction. The major arterial flow voids of the skullbase are preserved. Thinning of the ocular lenses. [id number]-quikyqqi paranasal sinus mucosal thickening. Small to moderate left and small right mastoid effusions. IMPRESSION: 1. No acute infarction, mass effect, or intracranial hemorrhage. 2. Mild chronic microvascular ischemic changes and diffuse cerebral volume loss. Dictated by Houston Harris MD @ 05/22/2023 3:31:55 PM Signed by:?Houston Harris MD @05/22/2023 3:31:55 PM (Electronic Signature)
[2023-05-22 13:16] LABS: Basophils Absolute Auto 0.04 K/uL (0.00-0.30); Basophils Percent Auto 0.8 % (0.0-3.0); Eosinophils Absolute Auto 0.24 K/uL (0.00-0.50); Eosinophils Percent Auto 4.5 % (0.0-7.0); Hemoglobin* 12.9 gm/dL (12.0-16.0); Immature Granulocytes Abs Auto 0.01 K/uL (0.00-0.30); Immature Granulocytes Pct Auto 0.2 %; Lymphocytes Absolute Auto 1.26 K/uL (0.90-2.90); Lymphocytes Percent Auto 23.9 % (20-44); Mean Corpuscular HGB Conc 34 gm/dL (32-36); Mean Corpuscular Hemoglobin 34 pg (26-34); Mean Corpuscular Volume 101 fL (80-100); Monocytes Percent Auto 8.3 % (0.0-11.0); Neutrophils Absolute Auto 3.29 K/uL (1.7-7.0); Neutrophils Percent Auto 62.3 % (42.0-72.0); Platelet Count* 167 K/uL (140-440); RDW Coefficient of Variation % 14.4 % (11.5-15.5); Red Blood Count 3.78 m/uL (4.00-5.20); White Blood Count* 5.28 K/uL (4.50-11.00)
[2023-05-22 13:20] LABS: Slide Review Reflex No
[2023-05-22 13:41] LABS: Chloride* 99 mmol/L (96-114)
[2023-05-22 13:42] LABS: Potassium* 4.2 mmol/L (3.6-5.1); Sodium* 133 mmol/L (135-149)
[2023-05-22 13:44] LABS: Creatinine* 0.7 mg/dL (0.5-1.5); Est. Creatinine Clearance* 36.68; Estimated Glomerular Filt Rate 90 ml/min
[2023-05-22 13:45] LABS: Anion Gap 11 mEq/L (7-15); Blood Urea Nitrogen* 14 mg/dL (7-30); Carbon Dioxide* 23 mmol/L (20-32)
[2023-05-22 13:46] LABS: PCR FLU A Negative PCR FLU A (Negative); PCR FLU B Negative PCR FLU B (Negative); SARS PCR* Negative SARS-CoV-2 (Negative)
[2023-05-22 13:46] LABS: Calcium* 9.7 mg/dL (8.4-10.6); Glucose* 113 mg/dL (60-115); Magnesium* 2.1 mg/dL (1.5-2.6)
[2023-05-22 14:04] LABS: C Reactive Protein* < 0.5 mg/dL (0.5-1.0); NT Pro B Type NatriureticPept* 155 pg/mL; Troponin I* < 0.01 ng/mL (0.01-0.04)
--- NOTE | 2023-05-22 15:02 | ED.NURSE ---
Patient brought back from MRI at [id number]
[2023-05-22 15:48] LABS: INR 1.06 (0.91-1.10); Prothrombin Time 14.5 Seconds
[2023-05-22 15:49] LABS: Partial Thromboplastin Time* 28 Seconds (23-33)
== END 2023-05-22 16:29 | disposition home or self-care (01) ==
PROVIDERS: Emergency Provider Family Medicine; PCP Family Medicine
DX: H81.399 Other peripheral vertigo, unspecified ear (principal); H53.8 Other visual disturbances
CPT/HCPCS: 36415; 70450; 70551; 80048; 81001; 83735; 83880; 84484; 85025; 85610; 85730; 86140; 87631; 93005; 96361; 96374; 96375; 99284; 99291; J2405; J7030

== ENCOUNTER 2024-01-06 06:51 | Day surgery (SDC) | payer MEDICARE, OTHER, SELFPAY ==
[2024-01-06] VITALS (16 sets, daily range): BP systolic 132–181; BP diastolic 73–96; PULSE 52–89; RESP 12–19; TEMP 35.9–36.5; O2SAT 94–100; BMI 22.4
--- OUTSIDE RECORDS SUMMARY | 2024-01-06 06:54 | XMS_ITS | Clinical Summary ---
Author Organization [facility] Address [place], [place] [address] Care Team Providers Care Representative Name Role Phone Nancy Escudero DO Primary Care Provider Allergies Active Allergy Reactions Criticality Noted Date Comments Penicillins Rash 09/13/2006 Medications Medication Sig Dispensed Refills Start Date End Date Status gabapentin (NEURONTIN) 300 mg capsule Take 300 mg by mouth 3 times daily if needed. 3 Active potassium chloride (KLOR-CON M20) 20 mEq extended-release tablet (part/cryst)Indicat ions:Essential hypertension Take 1 Tablet (20 mEq) by mouth two times daily with meals. 180 Tablet 3 3 Active atorvastatin (LIPITOR) 40 mg tabletIndications:M ixed hyperlipidemia Take 1 Tablet (40 mg) by mouth once daily. 90 Tablet 3 3 Active losartan (COZAAR) 50 mg tabletIndications:E ssential hypertension Take 1 Tablet (50 mg) by mouth once daily. 90 Tablet 3 3 Active metoprolol tartrate (LOPRESSOR) 50 mg tabletIndications:E ssential hypertension Take 1 Tablet (50 mg) by mouth two times daily. 180 Tablet 3 3 Active mirtazapine (REMERON) 15 mg tabletIndications:I nsomnia, unspecified type Take 2 Tablets (30 mg) by mouth at bedtime. 180 Tablet 3 3 Active fish oil-omega-3 fatty acids (Fish OiL) 1,200-360 mg cap Take 1 Capsule by mouth two times daily. One capsule is 1200 mg-360 mg Active magnesium oxide 400 mg magnesium tab Take 400 mg by mouth once daily. Active cholecalciferol (Vitamin D-3) 2,000 unit capsule Take 2,000 units by mouth once daily. Active acetaminophen (TYLENOL EXTRA STRGTH) 500 mg tabletIndications:C ervical stenosis of spine Take 2 Tablets (1,000 mg) by mouth every 6 hours if needed for Pain. Max acetaminophen dose: 4000mg in 24 hrs. 50 Tablet 3 Active ondansetron (ZOFRAN ODT) 4 mg disintegrating tabletIndications:C ervical stenosis of spine Place 1 Tablet (4 mg) on the tongue every 8 hours if needed for Nausea/Vomiting. 10 Tablet 3 Active docusate (COLACE) 100 mg capsuleIndications: Cervical stenosis of spine Take 1 Capsule (100 mg) by mouth once daily if needed for Constipation. 20 Capsule 3 Active cephalexin (KEFLEX) 500 mg capsule Take 500 mg by mouth three times daily. 3 Active methocarbamoL (ROBAXIN) 500 mg tabletIndications:C ervical stenosis of spine,Acute post-operative pain Take one-half Tablets (250 mg) by mouth every 6 hours if needed for Muscle Spasm. 20 Tablet 3 12/27/19 24 Discontinu ed(*Patien t states no longer taking) Active Problems Problem Noted Date Diagnosed Date Needs flu shot 12/24/2018 History of [place] fundoplication 08/19/2015 Overview (01/16/2018): EGD 07/2015 normal EGD 12/2017 mild loose wrap, biopsy normal Adenomatous colon polyp 08/19/2015 Overview (08/23/2015): Colonoscopy 07/2015 polyps repeat in 5 years Impaired fasting glucose 10/14/2014 Screening for other and unspecified deficiency a nemia 10/07/2012 ACP (advance care planning) 09/12/2012 Overview (09/12/2012): Patient has identified Health Care Agent(s): Yes Add Health Care Agents: Yes Health Care Agent(s): Primary Health Care Agent: Colton Sullivan Relationship: Secondary Health Care Agent: Shilpa Garcia Relationship: Daughter Conservator: Relationship: Phone: Guardian: Relationship: Phone: Patient has Advance Care Plan Documents (Health Care Directive, POLST): No, referral made to Social Work Services. Patient has identified Specific Treatment Preferences: Yes Specific Treatment Preferences: a.) Code Status: CPR/Attempt Resuscitation Spinal stenosis, lumbar brie on, without neurogenic claudication 05/28/2012 Lumbar facet arthropathy 05/28/2012 Hepatic steatosis 02/15/2012 Renal cyst, right 02/15/2012 Low back pain 02/15/2012 Atypical nevus 11/06/2011 Insomnia, unspecified 09/28/2006 History of rheumatoid arthritis 09/28/2006 Mixed hyperlipidemia 09/28/2006 Essential hypertension BPPV (benign paroxysmal positional vertigo) Resolved Problems Problem Noted Date Diagnosed Date Resolved Date Gastric ulcer 09/22/2011 08/26/2012 Overview (09/22/2011): Noted healed in 2007, recommend for ulcer prophylaxis indefinitely. Per dr streeter. Monica Huizar M.D. 09/22/2011 9:31 AM Knee pain 06/19/2011 08/26/2012 Routine general medical exam ination at a health care facility 05/11/2009 02/15/2012 Overview (05/11/2009): Colonoscopy 01/28 normal. Due in 10 years. dexa 01/29, no, due in 5 years. emt intermediate (current) use of anticoagulants 04/07/2009 05/11/2009 Overview (04/07/2009): INR Goal: 1.8 - 2.5 Potassium deficiency 03/08/2009 010 Anxiety state, unspecified 09/28/2006 0 04/27/2008 EXERTIONAL DYSPNEA 9 Pure hyperglyceridemia 04/27 Rheumatoid arthritis(714.0) 04/27/2008 SLEEP DISTURBANCE / INSOMNIA 04/27/2008 FATIGUE 04/27/2008 EXERTIONAL LEG DISCOMFORT Encounters Date Type Department Care Team Description 01/03/2024 Telephone [facility] [address] [facility] [address] Nancy Escudero, DO Questions (returning call) 12/31/2023 Telephone [facility] [address] [facility] [address] Nancy Escudero, DO Blood Pressure 12/27/2023 11:00 AM CDT Preop Visit [facility] [address] [facility] [address] Nancy Escudero, DO Preoperative Exam (01/06/24 - [facility] - Dr. Gray) 12/27/2023 Travel from Last 3 Months Immunizations Name Administration Dates Next Due Amb Influenza, Inact (High-d ose) (Flu Clinic Only) 03/04/2014 Amb Influenza, Inactivated A IIV4 (Age 65+ Years) Preserv Free 12/09/2019 COVID-19 VACCINE SPIKEVAX (M ODERNA 50MCG/0.5ML) 12YO+ PFS 01/30/2023 COVID-19 vaccine (Pfizer-Bio NTech 30mcg/0.3mL) 12YO+ BIVALENT PF, MDV 12/14/2021 COVID-19 vaccine (Pfizer-Bio NTech 30mcg/0.3mL) PF, MDV 12/28/2020,05/28/2020,05/07/2020 Influenza A (H1N1), Inactiva marija (Age >=3 Years) 01/23/2009 Influenza, High-dose Inactivated 03/10/2015 Influenza, IIV3 (Age >=3 years) 12/02/2012,12/23,12/23/2008 Influenza, Inactivated AIIV4 (Age 65+ Years) Preserv Free 01/30/2023,12/14/2021,12/28/2020 Influenza, Inactivated IIV3 (Age 65+ Years) Preserv Free 12/24/2018,01/02/2018 Pneumococcal Poly,23-Valent (Pneumovax) 08/27/19 13 Pneumococcal conj 13-Valent (Prevnar 13) 015 Td (Age >=7 Years) 10/20/2004 Tdap 12/11/2011 Family History Medical History Relation Name Comments Cancer-colon Brother 1 Kodak Rubin Heart Disease Father age 89 Cancer-breast Maternal Aunt Diabetes Mother Heart Disease Mother several heart attacks, age 91 Anesthesia Problem Neg. Cancer-breast Paternal Aunt Cancer-ovarian No Family History Relation Name Status Comments Brother 1 Kodak Rubin Alive Brother 2 Brandon Rubin Alive Brother 3 Zoltan Rubin Alive Twin Brother 4 Ed Caryn Alive Daughter 1 Shilpa Garcia Alive Daughter 2 Sri Julio Alive Father (Age 89) Maternal Aunt Maternal Grandfather Maternal Grandmother Mother (Age 91) Neg. Paternal Aunt Paternal Grandfather Paternal Grandmother Son Aiden Alive Social History Tobacco Use Types Packs/Day Years Used Date Smoking Tobacco: Never Smokeless Tobacco: Never Tobacco Cessation:Counseling Given: Yes Alcohol Use Standard Drinks/Week Comments No 0 (1 standard drink = 0.6 oz pur e alcohol) PHQ-2 Answer Date Recorded PHQ-2 TOTAL SCORE 0 02/20/2023 Social Connections Answer Date Recorded Frequency of Communication with Friends and Fami ly 0 03/06/2023 Financial Resource Strain Answer Date R ecorded Difficulty of Paying Living Expenses 3 03/06/2023 Difficulty of Paying Living Expenses Not on file 03/06/2023 Food Insecurity Answer Date Recorded Worried About Running Out of Food in the Last Ye ar 1 03/06/2023 Transportation Needs Answer Date Record ed Lack of Transportation (Medical) 1 03/06/2023 Housing Stability Answer Date Recorded Unable to Pay for Housing in the Last Year 1 03/06/2023 Sex and Gender Information Value Date Recorded Sex Assigned at Not on file Gender Identity Not on file Sexual Orientation Not on file Obstetrics History Para Term AB IAB SAB Ectopic Multiple Livin g Live Births 3 3 3 Date Outcome GA Total Labor Labor/2nd/3rd Weight Sex Type Anes PTL Rosanne A1 A5 Name Clin Para Para Para Last Filed Vital Signs Vital Sign Reading Time Taken Comments Blood Pressure 136/80 12/27/2023 11:38 AM CDT Pulse 98 12/27/2023 11:12 AM CDT Temperature 36.6 ??C (97.9 ??F) 03/07/2023 8:11 AM CS T Respiratory Rate 16 03/07/2023 8:11 AM COUNTER CHECKER Oxygen Saturation 99% 12/27/2023 11:12 AM CDT Inhaled Oxygen Concentration - - Weight 53.8 kg (118 lb 9.6 oz) 12/27/2023 11:12 AM CDT Height 149.9 cm (4' 11) 03/06/2023 10:30 AM COUNTER CHECKER Body Mass Index 23.95 03/06/2023 10:30 AM COUNTER CHECKER Plan of Treatment Health Maintenance Due Date Last Done Comments Zoster (shingles) series for age 50+ (1 of 2) 08/05/1997 DEXA/DXA scan for age 65+ 08/05/2012 01/30/2007 Tetanus booster 12/10/2021 12/11/2011, 10/20/2004 RSV vaccine for adults or (1 - 1-dose 75+ series) 08/05/2022 COVID-19 vaccine series ( season) 2023 01/30/2023, 12/14/2021, 12/28/2020, Additional history exists Influenza for age 65+ 11/24/2023 01/30/2023 , 12/14/2021, 12/28/2020, Additional history exists Depression screening for age 12+ 02/21/2024 02/20/2023, 12/14/2021, 11/30/2020, Additional history exists Medicare Wellness for age 65+ 02/21/2024, 12/14/2021, 11/30/2020, Additional history exists BMI (ht and wt on same day) for age 18+ 03/01/2024 03/01/2023, 02/20/2023, 12/14/2021, Additional history exists Tdap Completed 12/11/2011 Fecal testing non-DNA (FIT,FOBT,iFOBT) for age 45-75 Discontinued 07/01/2013 Hepatitis C screening for ag e 18-79 Completed 10/05/2014 Pneumococcal series for age 65+ Completed 5, 08/26/2012 Medical Devices Implanted Type Area Assistant Associate Professor Device Identifier Shelf Expiration Date Model / Serial / Lot Meg 7.0cmx5.5mm Pre-Cut - [id number] Implanted:Qty: 2 on 09/12/2012 at [facility] Spine Implants N/A: Spine Medtronic Spine/Ortho [id number] / / Set Screw 3dx - [id number] Implanted:Qty: 6 on 09/12/2012 at [facility] N/A: Spine Medtronic Spine/Ortho [id number]# / / Screw Thin Crest 6.5x45mm - [id number] Implanted:Qty: 6 on 09/12/2012 at [facility] N/A: Spine Medtronic Spine/Ortho [id number] / / Cnnctr Tsrh 3dx Sm - [id number] Implanted:Qty: 6 on 09/12/2012 at [facility] N/A: Spine Medtronic Spine/Ortho [id number]# / / Spacer Capstone Peek 09x26 - [id number] Implanted:Qty: 1 on 09/12/2012 at [facility] N/A: Spine Medtronic Spine/Ortho [id number]# / / [id number] Spacer Capstone Peek 09x26 - [id number] Implanted:Qty: 1 on 09/12/2012 at [facility] N/A: Spine Medtronic Spine/Ortho [id number]# / / [id number] Bone Canclls Crushed 60cc - [id number] Implanted:Qty: 1 on 09/12/2012 at [facility] Explanted:at [facility] (Quantity not on file) N/A: Spine Musculoskeletal Transplant 04/05/2015 [id number]# / [id number] / Set Screw Lmbr Tsrh 3dx - [id number] Implanted:Qty: 6 on 02/24/2019 by Barrett Ashby MD at [facility] N/A: Spine Medtronic Spine/Ortho [id number]# / / Cnnctr Lmbr Sm Tsrh 3dx Offsettitnm - [id number] Implanted:Qty: 6 on 02/24/2019 by Barrett Ashby MD at [facility] N/A: Spine Medtronic Spine/Ortho [id number]# / / Screw Lmbr Post 6.5x45mm Tsrh 3dx Og Thin Va - [id number] Implanted:Qty: 2 on 02/24/2019 by Barrett Ashby MD at [facility] N/A: Spine Medtronic Spine/Ortho [id number] / / Meg Lmbr 90x5.5mm Tsrh 3d Cvd Titnm - [id number] Implanted:Qty: 2 on 02/24/2019 by Barrett Ashby MD at [facility] N/A: Spine Medtronic Spine/Ortho [id number]# / / [id number] bone 1-4mm 30cc Medtronic Chips Canclls Freeze Dried Implanted:Qty: 1 on 02/24/2019 by Barrett Ashby MD at [facility] Explanted:at [facility] (Quantity not on file) N/A: Spine Medtronic Spine/Ortho 07/25/2023 [id number]# / [id number] / [id number] bone Matrix 1cc Kimball Dbf Putty Dbm Implanted:Qty: 1 on 02/24/2019 by Barrett Ashby MD at [facility] Explanted:at [facility] (Quantity not on file) N/A: Spine Medtronic Spine/Ortho 10/07/2019 [id number] / [id number] / Spacer Lmbr [id number] Capstone Tlif Peek - [id number] Implanted:Qty: 1 on 02/24/2019 by Barrett Ashby MD at [facility] N/A: Spine Medtronic Spine/Ortho 04/30/2021 [id number]# / / [id number] 88bone Cerv 5mm 4 Deg Tomeka W/P Implanted:Qty: 1 on 03/06/2023 at [facility] N/A: Spine Red Level Spine 06/26/2027 [id number] / [id number] / [place] Anterior Cervical Screws Self-Starting Variable Screw ? 4.0mm X 12mm Implanted:Qty: 6 on 03/06/2023 by Barrett Ashby MD at [facility] N/A: Spine [id number] / / Description:OZARK Anterior C ervical Screws Self-Starting Variable Screw ? 4.0mm x 12mm [place] View Anterior Cervical Plates Constrained 2 Level 34 Mm Implanted:Qty: 1 on 03/06/2023 by Barrett Ashby MD at [facility] N/A: Spine [id number] / / Description:OZARK VIEW Anter ior Cervical Plates Constrained 2 Level 34 mm Bone Matrix 1cc Dbx Paste [facility] - [id number] Implanted:Qty: 1 on 03/06/2023 by Barrett Ashby MD at [facility] N/A: Spine Musculoskeletal Transplant 11/12/2024 [id number] / [id number] / Bone Cerv 6mm 4 Deg Red Level W/P - [id number] Implanted:Qty: 1 on 03/06/2023 by Barrett Ashby MD at [facility] N/A: Spine Red Level Spine 12/03/2027 [id number] / [id number] / Explanted Type Area Assistant Associate Professor Device Identifier Shelf Expiration Date Model / Serial / Lot Explant Explanted:Qty: 1 on 02/24/2019 at [facility] N/A: Spine Description:MEG X2 CONNECTOR X6 SCREW X2 Procedures Procedure Name Priority Date/Time Associated Diagnosis Comments POTASSIUM Routine 12/27/2023 11:50 AM CDT Pre-op exam ANTI HCV Routine 10/05/2014 8:52 AM CDT Need for hepatitis C screening test OCCULT BLOOD IFOBT STOOL Routine 07/01/2013 9:51 AM CDT Special screening for malignant neoplasms, colon XR DXA BONE DENSITY 2 SITES AXIAL Routine 01/30/2007 2:52 PM COUNTER CHECKER Long-Term Use Steroids from Last 3 Months or Most Recently Relevant to Health Maintenance Results * POTASSIUM (12/27/2023 11:50 AM CDT) POTASSIUM 4.3 3.5 - 5.3 mmol/L [employer] Blood BLOOD SPECIMEN / Unknown 12/27/2023 11:50 AM CDT 12/27/2023 11:50 AM CDT Nancy Escudero DO CHEMISTRY [employer] [facility] [address] [place] [address], [place] [phone] [facility] [address] [place] [address] * ANTI HCV [73139.2] (10/05/2014 8:52 AM CDT) HEPATITIS C ANTIBODY Non-Reacti ve Non-Reacti ve 10/05/2014 2:49 PM CDT [facility] Blood specimen (specimen) BLOOD SPECIMEN / Unknown Venipuncture / Unknown 10/05/2014 8:52 AM CDT 10/05/2014 8:53 AM CDT Narrative [facility] - 10/05/2014 2:49 PM CDT Antibodies to HCV not detected; does not exclude the possibility of exposure to HCV. Colton Lowe MD SEND OUTS [facility] [address] [place] [address], * OCCULT BLOOD IFOBT STOOL (07/01/2013 9:51 AM CDT) Pathologist [facility] STOOL BLOOD ,IFOBT Negative Negative, Invalid 07/01/2013 10:06 AM CDT [facility] Stool specimen (specimen) STOOL SPECIMEN / Unknown Non-Blood / Unknown 07/01/2013 9:51 AM CDT 07/01/2013 9:51 AM CDT Colton Lowe MD LABORATORY [facility] [address] [place] [address], [place] [phone] * XR DEXA BONE DENSITY 2 SITES (01/30/2007 2:52 PM COUNTER CHECKER) Anatomical Region Laterality Modality Spine, HIPS, HIPL, HIPR Other 01/30/2007 2:52 PM COUNTER CHECKER Narrative 02/03/2007 10:00 AM COUNTER CHECKER Please see scanned document for results of this study. Procedure Note Monica Huizar D - 02/03/2007 Please see scanned document for results of this study. Moreno SUTTON from Last 3 Months or Most Recently Relevant to Health Maintenance Advance Directives * Full Code (Latest Code Status on File) Date Activated Date Inactivated Comments 03/06/2023 3:31 PM 03/07/2023 4:48 PM Question Answer Comments Code Status Discussion: Unable to Assess Preferences, Provider to review later * Full Code Date Activated Date Inactivated Comments 02/24/2019 12:23 PM 02/26/2019 5:21 PM * Full Code Date Activated Date Inactivated Comments 09/12/2012 2:40 PM 09/15/2012 5:07 PM * Full Code Date Activated Date Inactivated Comments 09/12/2012 6:01 AM 09/12/2012 2:40 PM Care Teams Representative Relationship Specialty Start Date End Date Nancy Escudero DO [address] [place] [address] PCP - General Family Practice 12/26/22
--- OUTSIDE RECORDS SUMMARY | 2024-01-06 06:55 | XMS_ITS | Continuity of Care Document ---
Author Organization [facility] Address [address] [place] [address] Phone Care Team Providers Care Space Systems Operations Superintendent Name Role Phone Symone FRANK, Amishawna Unavailable Unavailable Allergies, Adverse Reactions, Alerts Substance Reaction Status Criticality Penicillins Rash Active No Information Medications Medication Instructions Dosage Effective Dates (start - stop) Status Comments VITAMIN D3 (unknown strength) Not Available - Active LORAZEPAM (unknown strength) Not Available - Active MAGNESIUM (unknown strength) Not Available - Active OMEGA-3 ACID ETHYL ESTERS (unknown strength) Not Available - Active POTASSIUM CHLORIDE (unknown strength) Not Available - Active TYLENOL (unknown strength) Not Available - Active LIPITOR (unknown strength) Not Available - Active METOPROLOL SUCCINATE (unknown strength) Not Available - Active GABAPENTIN (unknown strength) Not Available - Active COZAAR (unknown strength) Not Available - Active Procedures Procedure Date Postop Followup Visit Postop Followup Visit X-Ray Exam Of Neck Spine2-3 Views ACDF - Anterior Cervical Discectomy and Fusion - PA ACDF - Additonal Level - PA Anterior Instrumentation, 2-3 Segments - PA ACDF - Anterior Cervical Discectomy and Fusion ACDF - Additonal Level(s) Anterior Instrumentation, 2-3 Segments D Allograft, Structural Physician Telephone Evaluation 5-10 Min Office/Outpatient Visit,[facility] 2022 Postop Followup Visit X-Ray Exam Lower Spine 2-3 Views 2019 TLIF - Includes PSF at the same level - PA PSF - Additional Level(s) - PA 19 Posterior Instrumentation, 3-6 Segments - PA PEEK/ Cage/ Implant, For Interbody Fusio n - PA TLIF - Includes PSF at the same level De PSF - Additional Level(s) Posterior Instrumentation, 3-6 Segments PEEK/ Cage/ Implant, For Interbody Fusio n Office/Outpatient Visit,[facility], [facility] 2018 Postop Followup Visit X-Ray Exam Lower Spine 2-3 Views 2012 Postop Followup Visit X-Ray Exam Lower Spine 2-3 Views 2012 Arthdsis Post/Posterolatrl/Postinterbody Lumbar Arthdsis Post/Posterlatrl/Postintrbdyadl Spc/Seg Remove Lumbar Spine Lamina, 1 Seg Remove Added Spine Lamina, 1 Seg 2012 Insert Spine Seg Fix, Post, 3-6 Seg Apply Spinal Prosthetic Device 13 Apply Spinal Prosthetic Device 13 Allograft, Spine Surg, Morselized Autograft, Spine Surgery, Local 013 Pa Arthdsis Post/Posterolatrl/Postinterb nehemiah Lumbar Pa Arthdsis Post/Posterlatrl/Postintrbdy adl Spc/Seg Pa Assist Remove Lumbar Spine Lamina, 1 Seg Pa Assist Remove Added Spine Lamina, 1 S eg Pa Assist Insert Spine Seg Fix, Post, 3- 6 Seg Pa Assist Apply Spinal Prosthetic Device Pa Assist Apply Spinal Prosthetic Device Office/Outpatient Visit,[facility] 2012 X-Ray Exam Lwr Spine, Min 4 Views Advance Directives Directive Yes / No Effective Date File Name No Information Encounters Encounter Description Practice Location Reason(s) For Visit Diagnoses Date Provider Providers Copied on Encounter [facility], [address], [place], [place], [address], [place] tel:[phone] [facility] Encounter for other specified surgical aftercare 4 Symone Reederr. [facility] [place], [address], [place], [place], [id number] , [place]. [phone] Referring Provider: Avinash Menchaca, [employer] [address] [facility], [place], [address]. tel:[phone] [facility], [address], [place], [place], [address], [place] [phone] [facility] Encounter for other specified surgical aftercare 4 Mehbod Amir. [facility], [address] [place] [address] [address], [place], [place], [address] , [place]. [phone] Referring Provider: Barrett Ashby, [address], [place], [address] . tel:[phone] [facility], [address], [place], [place], [address], [place] [phone] [facility] No Information 3 Dahiana Jones. [address] [place] [address] 600, [place], [address] , [place]. [phone] Referring Provider: Avinash Menchaca, [employer] [address] [facility], [place], [address]. tel:[phone] [facility], [address], [place], [place], [address], [place] tel:[phone] [facility] No Information 3 Mehbod Amir. [facility], [address] [place] [address] 600, [place], [address] , [place]. [phone] Referring Provider: Avinash Menchaca [employer] [facility] [address], [place], [address]. tel:[phone] Physician Telephone Evaluation 5-10 Min [facility], [address], [place], [place], [address], [place] tel:[phone] [facility] No Information 0-202 3 Mehbod Amir. [facility] [place], [address] [place] [address] 600, [place], [address] , [place]. [phone] Referring Provider: Avinash Menchaca, [employer] [address], [place], [address]. tel:[phone] Office/Outpa tient Visit,[facility], [address], [place], [place], [address], [place] tel:[phone] [facility] Spinal stenosis, cervical region 3 Mehbod Amir. [facility], [address] [place] [address] [address], [place], [address] , [place]. [phone] Referring Provider: Avinash Menchaca [employer] [address] [facility], [place], [address]. tel:[phone] [facility], [address], [place], [place], [address], [place] [phone] [facility] Arthrodesis status 0 Mehbod Amir. [facility], [address] [place] [address] 600, [place], [place], [address] , [place]. [phone] Referring Provider: Avinash Menchaca [employer] [facility] [address] [facility], [place], [address]. tel:[phone] [facility], [address], [place], [place], [address], [place] tel:[phone] [facility] No Information 9 Dahiana Jones. [address] [place] [address], [place], [address] , [place]. [phone] Referring Provider: [facility] [address] [facility], [place], [address]. tel:[phone] [facility], [address], [place], [place], [address], [place] tel:[phone] [facility] No Information 3201 9 Mehbod Amir. [facility], [address] [place] [address] [address], [place], [place], [address] , [place]. tel:[phone] Referring Provider: Avinash Menchaca, [employer] [address] [facility], [place], [address]. tel:[phone] Office/Outpa tient Visit,[facility], [address], [place], [place], [address], [place] tel:[phone] [facility] Arthrodesis statusOther intervertebral disc degeneration, lumbar region 9 Mehbod Amir. [facility], [address] [place] [address] [address], [place], [place], [address] , [place]. tel:[phone] Referring Provider: Avinash Menchaca [employer] [address] [facility], [place], [address]. tel:[phone] Z [facility], [address] [place] [address], [place], [address], [place] tel:[phone] [facility] No Information 3 Alex Lopez. [facility], [address], [place], [address], [place]. tel:[phone] Referring Provider: Stuart Corona, [employer] [address] [facility], [place], [address]. tel:[phone] Z [facility], [address] [place] [address], [address], [place] tel:[phone] [facility] 3 Mehbod Amir. [facility], [address] [place] [address] [address], [place], [place], [address] , [place]. tel:[phone] Referring Provider: [facility], [place], [address]. tel:[phone] Z [facility], [address] [place] [address] [address], [place], [address], tel:[phone] [facility] No Information 3 Mehbod Amir. [facility], [address] [place] [address] [address], [place], [place], [address] , . tel:[phone] Referring Provider: Stuart Corona, [facility], [place], [address]. tel:[phone] Office/Outpa tient Visit,[facility] Z [facility], [address] [place] [address] [address], [place], [address], tel:[phone] [facility] No Information 3 Mehbod Amir. [facility], [address] [place] [address] [address], [place], [place], [address] , . tel:[phone] Referring Provider: Stuart Corona, [facility] Chad [facility], [place], [address]. tel:[phone] Family History Family Member Type Diagnosis Age At Onset No Information Payers Payer name Insurance type Covered green party ID Authorsiaa tigarrett(s) Medicare MB [id number] [facility] [id number] Social History Type Description Quantity Date Captured Comments Alcohol Use Details Unknown Caffeine Use Details Unknown Tobacco Use Status No Information Smoking Status Never smoker Non-Smoking Tobacco Use Details : No Details Available : No Details Available Sex Female Vital Signs Date / Time: Height Weight BMI Pulse Rate Blood Pressure Temperature Respiratory Rate Body Surface Area Head Circumference Head Circ. Percentile Wt./Alex. Percentile BMI percentile Pulse Ox Inhaled Ox 10:45 AM 61.00 in 52.163 kg (115.00 lbs) 21.7 3 kg/m eter (2) Chief Complaint And Reason For Visit No Information Reason For Referral Reason For Referral No Information History Of Present Illness Encounter Date Complaint History Of Prese nt Illness No Information Functional Status Date Functional Assessmen t No Information Instructions Date Instruction Additional Infor mation No Information Assessments Type Assessment Date No Information Patient Care Teams Name Effective Dates (start - stop) Status Members No Information
--- OUTSIDE RECORDS SUMMARY | 2024-01-06 06:55 | XMS_ITS | Continuity of Care Document ---
Author Organization [facility] Address [address] [place] [address] Phone Care Team Providers Care Technical Document Writer Name Role Phone Symone FRANK, Amishawna Unavailable [...] Structural Physician Telephone Evaluation 5-10 Min Office/Outpatient Visit,[facility], [facility] 2022 Postop Followup Visit X-Ray Exam Lower [...] Cage/ Implant, For Interbody Fusio n Office/Outpatient Visit,[facility], [facility] 2018 Postop Followup Visit X-Ray Exam Lower [...] Pa Assist Apply Spinal Prosthetic Device Office/Outpatient Visit,[facility], [facility] 2012 X-Ray Exam Lwr Spine, Min 4 Views Advance Directives Directive Yes / No Effective Date File Name No Information Encounters Encounter Description Practice Location Reason(s) For Visit Diagnoses Date Provider Providers Copied on Encounter [facility], [address], [place], [place], [address], [place] tel:[phone] [facility] Encounter for other specified surgical aftercare 4 Symone Reederr. [facility] [place], [address], [place], [place], [address] , [place]. [phone] Referring Provider: Avinash Menchaca, [employer] [address] [facility], [place], [address]. tel:[phone] [facility], [address], [place], [place], [address], [place] [phone] [facility] Encounter for other specified surgical aftercare 4 Mehbod Amir. [facility], [address] [place] [address] 600, [place], [place], [address] , [place]. [phone] Referring Provider: Barrett Ashby, [address], [place], [address] . tel:[phone] [facility], [address], [place], [place], [address], [place] [phone] [facility] No Information 3 Dahiana Jones. [address] [place] [address] 600, [place], [place], [address] , [place]. [phone] Referring Provider: Avinash Menchaca, [employer] [address] [facility], [place], [address]. tel:[phone] [facility], [address], [place], [place], [address], [place] tel:[phone] [facility] No Information 3 Mehbod Amir. [facility], [address] [place] [address] 600, [place], [place], [address] , [place]. [phone] Referring Provider: Avinash Menchaca [facility] [address], [place], [address]. tel:[phone] Physician Telephone Evaluation 5-10 Min [facility], [address], [place], [place], [address], [place] tel:[phone] [facility] No Information 0-202 3 Mehbod Amir. [facility] [place], [address] [place] [address] [address], [place], [place], [address] , [place]. [phone] Referring Provider: Avinash Menchaca, [employer] [address], [place], [address]. tel:[phone] Office/Outpa tient Visit,[facility], [address], [place], [place], [address], [place] tel:[phone] [facility] Spinal stenosis, cervical region 3 Mehbod Amir. [facility], [address] [place] [address] 600, [place], [place], [address] , [place]. [phone] Referring Provider: Avinash Menchaca [employer] [address] [facility], [place], [address]. tel:[phone] [facility], [address], [place], [place], [address], [place] [phone] [facility] Arthrodesis status 0 Mehbod Amir. [facility], [address] [place] [address] 600, [place], [place], [address] , [place]. [phone] Referring Provider: Avinash Menchaca [facility] [address] [facility], [place], [address]. tel:[phone] [facility], [address], [place], [place], [address], [place] tel:[phone] [facility] No Information 9 Dahiana Jones. [address] [place] [address], [place], [address] , [place]. [phone] Referring Provider: [facility] [address] [facility], [place], [address]. tel:[phone] [facility], [address], [place], [place], [address], [place] tel:[phone] [facility] No Information 3201 9 Mehbod Amir. [facility] [place], [address] [place] [address] [address], [place], [place], [address] , [place]. [phone] Referring Provider: Avinash Menchaca, [facility] [address] [facility], [place], [address]. tel:[phone] Office/Outpa tient Visit,[facility], [facility], [address], [place], [place], [address], [place] tel:[phone] [facility] Arthrodesis statusOther intervertebral disc degeneration, lumbar region 9 Mehbod Amir. [facility] [place], [address] [place] [address] [address], [place], [place], [address] , [place]. tel:[phone] Referring Provider: Avinash Menchaca [employer] [address] [facility], [place], [address]. tel:[phone] Z [facility] [place], [address] [place] [address], [place], [address], [place] tel:[phone] [facility] No Information 3 Alex Lopez. [facility], [address], [place], [address], [place]. tel:[phone] Referring Provider: Stuart Corona, [employer] [address] [facility], [place], [address]. tel:[phone] Z [facility] [place], [address] [place] [address], [address], [place] tel:[phone] [facility] LUMBAGO 3 Mehbod Amir. [facility] [place], [address] [place] [address] [address], [place], [place], [address] , [place]. tel:[phone] Referring Provider: [facility], [place], [address]. tel:[phone] Z [facility], [address] [place] [address] 600, [place], [address], tel:[phone] [facility] No Information 3 Mehbod Amir. [facility] [place], [address] [place] [address] [address], [place], [place], [address] , . tel:[phone] Referring Provider: Stuart Corona, [facility], [place], [address]. tel:[phone] Office/Outpa tient Visit,[facility], [facility] Z [facility] [place], [address] [place] [address] 600, [place], [address], tel:[phone] [facility] No Information 3 Mehbod Amir. [facility] [place], [address] [place] [address] [address], [place], [place], [address] , . tel:[phone] Referring Provider: Stuart Corona, [facility], [place], [address]. tel:[phone] Family History Family Member Type Diagnosis Age At Onset No Information Payers Payer name Insurance type Covered libertarian ID Authorsiaa tigarrett(s) Medicare MB [id number] [facility] [id number] Social History Type Description Quantity Date Captured [...]
[2024-01-06] MEDS: SODIUM CHLORIDE 0.9 % (FLUSH) 10 ML SYRINGE IVF (07:20)
[2024-01-06] MEDS: LACTATED RINGERS 1000 ML 1,000 ML 100 ML IV (07:20)
[2024-01-06] MEDS: fentaNYL 100 MCG/2 ML inj IVP (07:20)
[2024-01-06] MEDS: MIDAZOLAM HCL 1 MG/ML inj IVP (07:20)
--- NOTE | 2024-01-06 07:22 | W.PM.H&PU ---
History & Physical Update History & Physical Update H&P Reviewed and patient assessed: No changes noted
--- NOTE | 2024-01-06 08:33 | SUR.PREOP ---
TIME?OUT:?55 PT/Brianna HUMPHRIES RN/Deonte HENSON MDA?VERIFICATION?OF?SURGICAL?SITE,?PROCEDURE,?AND?CONSENT OBTAINED?PRIOR?TO?INVASIVE?PROCEDURE.
[2024-01-06] MEDS: CEFAZOLIN 2 GM in 0.9 % SODIUM CHLORIDE Mini-bag 100 ML IVPB (09:00)
[2024-01-06] MEDS: EPINEPHrine 1 MG in SODIUM CHLORIDE IRRIG SOLUTION 3,000 ML 3001 MG IRRIGATION ×3 (09:17→09:50)
--- NOTE | 2024-01-06 09:21 | P.NB_ITS ---
Nerve Block Nerve Block Time Seen by Provider: 08:25 Date Seen: 01/06/24 Type of block requested by surgeon for post-operative analgesia: supraclavicular Side: left Time out performed: Yes Verification of patient name: Yes Verification of date of : Yes Site marking: site marked Name of person performing procedure: Saul Continuous monitoring Was continuous monitoring of O2 sat, B/P, property assessment monitor, recorded every 15 minutes?: Yes Procedure Checklist: sterile prep, needles and gloves Ultrasound guided. Images saved: Yes Medications given in 5ml increments after negative aspiration: Ropivicaine %: 0.5 mL: 20 Needle gauge: 22 Precedex (mcg): 25 Patient tolerated procedure well: Yes Block Charges Block Charge (with Pro Fee): Brachial Plexus Use of Ultrasound Machine for Block: Yes- US Guidance/pain block
--- NOTE | 2024-01-06 09:22 | W.ANESCHARGE ---
Anesthesia Charges Start Date/Time Anesthesia Start Date: 01/06/24 Anesthesia Start Time: 08:38 Stop Date/Time Anesthesia Stop Date: 01/06/24 Anesthesia Stop Time: 10:36 Summary Extremes of Age - Over 70 or under 1: MDA
--- NOTE | 2024-01-06 09:28 | SUR.OPER ---
PATIENT QUESTIONS ANSWERED SATISFACTORILY PREOPERATIVELY. PATIENT BROUGHT TO OR #3 PER CART FOLLOWING THE BLOCK. Patient positioned supine on OR #3 bed for the intubation.? Perioperative team placed the right arm in a neutral position on the arm board. Left arm elevated on an IV pole in a padded strap for prep. Final approval of positioning by surgeon. CONTINUOUS IRRIGATION OF THE LEFT SHOULDER WITH MIXTURE OF 3000 NACL AND 1mg OF EPINEPHRINE DURING PROCEDURE.
--- NOTE | 2024-01-06 10:22 | PM.ORPRC ---
Procedure Note Date of procedure: 01/06/24 Procedure: PREOPERATIVE DIAGNOSES: 1. Left shoulder rotator cuff tear. 2. Left shoulder AC joint arthrosis 3. Left shoulder labral tearing 4. Left shoulder subacromial impingement syndrome. POSTOPERATIVE DIAGNOSES: 1. Left shoulder rotator cuff tear (upper border subscapularis high-grade partial-thickness; also high-grade partial-thickness infraspinatus near the musculotendinous junction) 2. Left shoulder AC joint arthrosis 3. Left shoulder long head biceps high-grade partial-thickness tearing 4. Left shoulder labral tearing 5. Left shoulder subacromial impingement syndrome. NAME OF OPERATION: 1. Left shoulder arthroscopic rotator cuff repair (upper border subscapularis and high-grade partial-thickness infraspinatus) 2. Left shoulder arthroscopic long head of biceps tenodesis 3. Left shoulder arthroscopic distal clavicle excision 4. Left shoulder arthroscopic limited glenohumeral debridement 5. Left shoulder arthroscopic bursectomy, subacromial decompression/partial acromioplasty. SURGEON: German Todd MD RAIL MAINTENANCE WORKER: Hernan Freeman PA-C. Of note, a skilled retail event and sales assistant was critical for this case to aide in patient positioning, suture manipulation, arm positioning, instrument positioning, and closure. ANESTHESIA: General plus preoperative supraclavicular block. EBL: 25 mL IMPLANTS: Arthrex 4.75 mm BioComposite SwiveLock suture anchor (x1); COMPLICATIONS: None evident INDICATIONS: The patient is a pleasant, 78-year-old female who has experienced left shoulder pain that has been increasing in recent time. Physical exam and imaging were consistent with a rotator cuff tear. Given their findings, as well as the weakness and pain, and inadequate response to nonoperative management, recommendation was made for surgery. FINDINGS: Exam under anesthesia revealed stable shoulder with excellent range of motion. The diagnostic arthroscopy revealed grade 3 chondromalacia anterior humeral head and glenoid. The Subscapularis tendon was torn in high-grade partial-thickness manner from the upper border with mild-moderate retraction. The long head of the biceps tendon was torn and high-grade partial-thickness manner with subluxation out of the groove. The superior rotator cuff tendon was found to be torn and high-grade partial-thickness manner of the infraspinatus anterior to mid portion. The labrum was degeneratively frayed in the anterior and superior aspects. No loose bodies were identified within the pouch or subscapularis recess. PROCEDURE: Following a thorough discussion of risks, benefits, and alternatives, consent was obtained and the left shoulder was marked. The patient was brought to the operating room and placed supine on the operating table. Induction of anesthesia was completed after preoperative supraclavicular block was administered in preop holding. Appropriate time out was performed identifying proper patient, site, and procedure. 1 g IV Ancef was administered within 1 hour of incision preoperatively. The left upper extremity was prepped and draped in the appropriate sterile fashion using ChloraPrep prep. This was after the patient was positioned in the beach chair with their head in neutral alignment and all bony prominences well padded. The shoulder was insufflated with 20mL of normal saline via an 18g spinal needle from a posterior approach. An 11 blade skin incision allowed a blunt trochar to be inserted and diagnostic arthroscopy to be performed with the findings as noted above. An anterior portal was established with an outside in technique. This allowed the probe to be inserted and confirm the diagnostic arthroscopic findings. The shaver was then inserted and allowed debridement of the anterior and superior labrum as well as the biceps stump after tenodesis. Additionally, the long of the biceps was released from the bicipital tuberosity and arthroscopic biceps tenodesis performed with a loop 'n tack technique securing the suture into the same anchor as the subscapularis repair. The stump was debrided with a shaver. Following this, the upper border subscapularis was repaired after debriding the lesser tuberosity with the shaver and Heiskell cautery. Subscapularis was captured in horizontal mattress fashion with a fiber tape suture. The tails were brought to a single anchor in the lesser tuberosity with excellent reapproximation of the subscap tendon and good excursion/tension. Thereafter, the subacromial space was entered. Here, a complete bursectomy and partial acromioplasty/subacromial decompression was performed with a combination of radiofrequency ablator, the shaver, and a 5.5 mm bur. Additionally, distal clavicle excision was performed with the bur. 8 mm of distal clavicle was resected based on the width of our bur. Further inspection of the supraspinatus and infraspinatus rotator cuff was performed. This identified the tear as noted above. The margins of the tear were debrided with a torpedo shaver. As this was near the musculotendinous junction, and from the articular side the footprint appeared to be intact, this was felt to not warrant taking down otherwise good tissue. Therefore, we reapproximated the tissue/repaired it with suture tape with 1 simple throw and 1 [id number] throw. The rotator cuff showed excellent reapproximation with good security upon probing. Of note, prior to anchor hazmat truck driver removal for the subscap repair the eyelet sutures were tugged on and found that the anchor had excellent stability within the bone. The shoulder was placed through range of motion and found to be stable. The rotator cuff was re-probed and found to be stable. Instruments were removed. Excess fluid was drained, closure performed with 4-0 Monocryl and Steri-Strips. Dressings were applied. Sling was applied. The patient was awoken from anesthesia and transferred to the PACU in stable condition. A skilled retail event and sales assistant was critical for this case to aid in patient positioning, limb positioning, skill to manipulate arthroscopic instruments and camera, suture management, patient safety, and closure. PLAN: 1. Elbow, forearm, wrist and digit range of motion of operative extremity as tolerated. 2. Encouraged ice. 3. Tramadol for pain as needed. 4. Sling at all times except for ROM and showering. 5. Follow up with PA visit in 1-2 weeks for wound check. Initiate physical therapy following that visit for passive range of motion. Initiate active assisted range of motion at 6 weeks. May do pendulums now.
--- NOTE | 2024-01-06 10:39 | W.ANESCHARGE ---
Anesthesia Charges Start Date/Time Anesthesia Start Date: 01/06/24 Anesthesia Start Time: 08:38 Stop Date/Time Anesthesia Stop Date: 01/06/24 Anesthesia Stop Time: 10:36 Summary Extremes of Age - Over 70 or under 1: TECHNICAL TRAINING COORDINATOR
== END 2024-01-06 12:28 | disposition home or self-care (01) ==
LOC: OR 06:53
PROVIDERS: PCP Family Medicine; Visit Provider Orthopaedic Surgery Sports Medicine
PROC: (CPT 29805; principal; 2024-01-06 09:00)
DX: M75.102 Unspecified rotator cuff tear or rupture of left shoulder, not specified as traumatic (principal); M19.012 Primary osteoarthritis, left shoulder; S43.432A Superior glenoid labrum lesion of left shoulder, initial encounter; M75.42 Impingement syndrome of left shoulder; S46.112A Strain of muscle, fascia and tendon of long head of biceps, left arm, initial encounter; G89.18 Other acute postprocedural pain
CPT/HCPCS: 29827; 29828; 29826; 29824; 29822; 01630; 64415; 76942; 99100; C1713; J0171; J0330; J0690; J1100; J2250; J2371; J2405; J2704; J2795; J3010; J7120; L3670

== ENCOUNTER 2024-03-03 11:15 | Outpatient (RCR) | payer MEDICARE, OTHER, SELFPAY ==
--- NOTE | 2024-02-12 13:41 | PT.OPEX ---
PT [place] Outpatient Eval PT [facility] Outpatient Eval Start: 02/12/24 11:47 Freq: Status: Active Protocol: Document 02/12/24 11:48 [facility] (Rec: 02/12/24 12:47 [facility] No Response) E-signed By Emmanuel Renteria, PT Physical Therapy Outpatient Evaluation Insurance Information Recert Due Date 05/06/24 Insurance Name Medicare B Medical Diagnosis Left shoulder arthroplasty: RCR of upper border subscapularis, high grade partial thickness supraspinatus, long head biceps tenodesis, DCE, limited GH debridement, bursectomy Treating Diagnosis Left shoulder pain Left shoulder stiffnes Muscle weakness Referring MD Dr. Todd Subjective Preferred Name Xin Subjective Xin presents 5 weeks and 2 days s/p left shoulder arthroscopic RCR. She still has significant pain, especially in the evening when she is trying to sleep. Xin is wearing her sling 24 hrs, she takes it off ~2x/day to do her elbow/wrist ROM and pendulum ex. Xin is not sleeping well at all. She is taking extra strength Tylenol for pain. Xin sustained her left RTC tear from a forward fall onto her face in May,. She busted her teeth, sustained three c-spine fractures (had cervical fusion at the end of May at [facility] w/ Dr. Ashby) . PMH: HTN, cervical spine fusion, lumbar fusion, arthritis Pain Comments Left shoulder: 3-01/01 Date of Last Physician Visit 01/16/24 Date of Surgery (If applicable) 01/06/24 Current Work Status Retired Precautions Treatment Precautions/Contraindications PROM x 6 weeks, AAROM progression starting at 6 weeks Therapy Limitations/Systems Review Other Medical Problem Objective Other/Pertinent Objective Left elbow/wrist AROM: WNL PROM: Left shoulder Flexion: 143 deg Abduction: 145 deg ER: 65 deg IR: 55 deg Strength: NT Left elbow strength: flexion: 3+/5 Palpation: + TTP left u trap and supraspinatus non tender left biceps mm Functional Test Performed & Score QuickDASH: 79.5% disability Assessment Assessment/Impression 77 year old female 5 weeks/2 days s/p left shoulder arthroscopic RCR ( infraspinatus and subscapularis), biceps tenodesis, DCE and GH debridement. She is still in the shoulder immobilizer ~24 hrs/day. Pain at night is her primary complaint. Today, she has very good PROM left shoulder, better than expected. Elbow/wrist AROM WNL . She will benefit from skilled PT for safe progression of PROM to AROM & strengthening, as protocol allows. Primary Functional Limitations Any activity involving left UE (Pt is R handed) Plan of Care Rehabilitation Potential Excellent Physical Therapy Goals In 2-3 weeks, pt will: 1) Demo WNL left shoulder AAROM to facilitate smooth transition to AROM/ strengthening 2) Report 50% improvement in sleep ability In 6-8 weeks, pt will: 3) Be able to don/doff coat and bra pain free 4) Sleep through the night without waking due to left shoulder pain 5) Be able to reach into overhead cabinet to retrieve lightweight object w/ left hand 6) Improve QuickDASH score by at least 14 pints for MCID Coordination/Communication With Referral Source Treatment Plan/Direct Interventions Manual Therapy,Neuromuscular Re-ed,Self-Care/Home Management,Therapeutic Activities,Therapeutic Exercises Direct Interventions Clarification s/p RCR protocol Comments Frequency/Duration 1-2x/week for 6-8 weeks Patient Will Be Discharged From Therapy Completion of LTG(s), Independent w/HEP, Independently Progressing Evaluation Billing Untimed Code Treatment Minutes 25 Complexity Moderate Certification Information Initial Certification Date 02/12/24 Ending Certification Date 05/06/24 Provider Signature Required Yes Provider Signature Shows Agreement With POC & Medical Necessity Physician NPI Number Write NPI# Here Physician Comment/Change : Physician Signature & Date Requested Please Sign/Date Here
== END 2024-05-22 08:13 | disposition home or self-care (01) ==
PROVIDERS: PCP Family Medicine; Visit Provider Physician Assistant Surgical
DX: Z98.890 Other specified postprocedural states (principal); M25.512 Pain in left shoulder; M25.612 Stiffness of left shoulder, not elsewhere classified; M62.81 Muscle weakness (generalized); Z51.89 Encounter for other specified aftercare
CPT/HCPCS: 97110; 97112; 97162

== ENCOUNTER 2024-08-22 21:30 | Emergency (ER) | payer MEDICARE, OTHER, SELFPAY ==
--- OUTSIDE RECORDS SUMMARY | 2024-08-22 21:32 | XMS_ITS | Clinical Summary ---
Author Organization [facility] Address [address] [place] [id number] Care Team Providers Care Special Effects Makeup Artist Name Role Phone Nancy Escudero DO Primary Care Provider [phone] Allergies Active Allergy Reactions Criticality Noted Date Comments Penicillins Rash 09/13/2006 Medications acetaminophen (TYLENOL EXTRA STRGTH) 500 mg tabletIndications: Cervical stenosis of spine Take 2 Tablets (1,000 mg) by mouth every 6 hours if needed for Pain. Max acetaminophen dose: 4000mg in 24 hrs. 50 Tablet 3 11:10 AM OTORHINOLARYNGOLOGIST 03/07/20 23 Active mirtazapine (REMERON) 15 mg tabletIndications: Insomnia, unspecified type TAKE 2 TABLETS(30 MG) BY MOUTH AT BEDTIME 180 Tablet 1 04/02/19 25 Active metoprolol tartrate (LOPRESSOR) 50 mg tabletIndications: Essential hypertension Take 1 Tablet (50 mg) by mouth two times daily. 180 Tablet 3 04/08/19 25 Active losartan (COZAAR) 50 mg tabletIndications: Essential hypertension Take 1.5 Tablets (75 mg) by mouth once daily. 135 Tablet 3 05/15/19 25 Active atorvastatin (LIPITOR) 40 mg tabletIndications: Mixed hyperlipidemia TAKE 1 TABLET(40 MG) BY MOUTH EVERY DAY 90 Tablet 3 06/03/19 25 Active potassium chloride (KLOR-CON M20) 20 mEq extended-release tablet (part/cryst)Indica tions:Essential hypertension TAKE 1 TABLET(20 MEQ) BY MOUTH TWICE DAILY WITH MEALS 180 Tablet 06/02/19 25 Active Active Problems Problem Noted Date Diagnosed Date [...] Care Agent(s): Primary Health Care Agent: Colton Nate Relationship: Secondary Health Care Agent: Shilpa Garcia [...] dexa 01/29, no, due in 5 years. snf (current) use of anticoagulants 04/07/2009 05/11/2009 Overview (04/07/2009): INR Goal: 1.8 - 2.5 Potassium deficiency 03/08/2009 010 Anxiety state, unspecified 09/28/2006 0 04/27/2008 EXERTIONAL DYSPNEA 9 Pure hyperglyceridemia 04/27 Rheumatoid arthritis(714.0) 04/27/2008 SLEEP DISTURBANCE / INSOMNIA 04/27/2008 FATIGUE 04/27/2008 EXERTIONAL LEG DISCOMFORT Encounters Date Type Department Care Team Description 06/01/2024 Refill [facility] [address] [place] [address] Nancy Escudero Rosanne, DO Refill Request (Atorvastatin, Potassium Chloride, Atorvastatin) from Last 3 Months Immunizations Immunization Administration Dates Next Due Amb Influenza, Inact (High-d ose) (Flu Clinic Only) 03/04/2014 Amb Influenza, Inactivated A IIV4 (Age 65+ Years) Preserv Free 12/09/2019 COVID-19 VACCINE SPIKEVAX (M ODERNA 50MCG/0.5ML) 12YO+ PFS 04/08/2024,01/30/2023 COVID-19 vaccine (Pfizer-Bio NTech 30mcg/0.3mL) 12YO+ BIVALENT PF, MDV 12/14/2021 COVID-19 vaccine (Pfizer-Bio NTech 30mcg/0.3mL) PF, MDV 12/28/2020,05/28/2020,05/07/2020 Influenza A (H1N1), Inactiva marija (Age >=3 Years) 01/23/2009 Influenza, High-dose Inactivated 03/10/2015 Influenza, IIV3 (Age >=3 years) 12/02/2012,12/23,12/23/2008 Influenza, Inactivated AIIV4 (Age 65+ Years) Preserv Free 01/30/2023,12/14/2021,12/28/2020 Influenza, Inactivated IIV3 (Age 65+ Years) Preserv Free 04/08/2024,12/24/2018,01/02/2018 Pneumococcal Poly,23-Valent (Pneumovax) 08/27/19 13 Pneumococcal conj [...] Answer Date Recorded PHQ-2 TOTAL SCORE 0 04/08/2024 Social Connections Answer Date Recorded Do you often feel lonely or isolated from those around you? 0 03/06/2023 Financial Resource Strain Answer Date R ecorded Difficulty of Paying Living Expenses 3 03/06/2023 Difficulty of Paying Living Expenses Not on file 03/06/2023 Food Insecurity Answer Date Recorded Do you worry your food will run out before you are able to buy more? 1 03/06/2023 Transportation Needs Answer Date Record ed Does lack of transportation keep you from medica l appointments? 1 03/06/2023 Does lack of transportation keep you from work, meetings or getting things that you need? 1 03/06/2023 Housing Stability Answer Date Recorded What is your housing situation today? 1 03/06/2023 Interpersonal Safety Answer Date Record ed Are you being hit, kicked, p ushed or yelled at (see row info)? No 03/06/2023 Interpersonal Safety Abuse 12 - 18 Not on file 03/06/2023 Interpersonal Safety Ambulatory Vulnerability No t on file 03/06/2023 Utilities Answer Date Recorded Do you have trouble paying f or utilities (for example, heat, electricity, water, phone)? 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 Not on file Not on file Not on file Not on file Not on file Not on file Not on file Obstetrics History Para Term AB IAB SAB Ectopic Multiple Livin g Live Births 3 3 3 Date Outcome GA Total Labor Labor/2nd/3rd Weight Sex Type Anes PTL Rosanne A1 A5 Name Clin Para Para Para Last Filed Vital Signs Vital Sign Reading Time Taken Comments Blood Pressure 116/72 05/18/2024 12:52 PM OTORHINOLARYNGOLOGIST Pulse 59 05/18/2024 12:52 PM OTORHINOLARYNGOLOGIST Temperature 36.7 C (98.1 F) 05/18/2024 12:52 PM OTORHINOLARYNGOLOGIST Respiratory Rate 16 03/07/2023 8:11 AM OTORHINOLARYNGOLOGIST Oxygen Saturation 96% 05/18/2024 12:52 PM OTORHINOLARYNGOLOGIST Inhaled Oxygen Concentration - - Weight 54.7 kg (120 lb 8 oz) 04/08/2024 1:54 PM OTORHINOLARYNGOLOGIST Height 149.9 cm (4' 11) 03/06/2023 10:30 AM OTORHINOLARYNGOLOGIST Body Mass Index 24.34 03/06/2023 10:30 AM OTORHINOLARYNGOLOGIST Plan of Treatment Health Maintenance Due Date Last Done Comments Zoster (shingles) series for age 50+ (1 of 2) 08/05/1997 DEXA/DXA scan for age 65+ 08/05/2012 01/30/2007 Tetanus booster 12/10/2021 12/11/2011, 10/20/2004 RSV vaccine for adults or (1 - 1-dose 75+ series) 08/05/2022 BMI (ht and wt on same day) for age 18+ 03/01/2024 03/01/2023, 02/20/2023, 12/14/2021, Additional history exists COVID-19 vaccine series ( season) 2024 04/08/2024, 01/30/2023, 12/14/2021, Additional history exists Depression screening for age 12+ 04/08/2025 04/08/2024, 02/20/2023, 12/14/2021, Additional history exists Medicare Wellness for age 65+ 04/09/2025 04/08/2024, 02/20/2023, 12/14/2021, Additional history exists Tdap Completed 12/11/2011 Hepatitis C screening for age 18-79 Completed 10/05/2014 Pneumococcal series for age 50+ Completed 03/10/2015, 08/26/2012 Influenza Vaccine Completed 04/08/2024, , 12/14/2021, Additional history exists Hepatitis B series for 19+ Aged Out N o longer eligible based on patient's age to complete this topic Medical Devices Implanted Type Area Office Coordinator Device Identifier Shelf Expiration Date Model / Serial / Lot Meg 7.0cmx5.5mm Pre-Cut - [id number] Implanted:Qty: 2 on 09/12/2012 at [facility] Spine Implants N/A: Spine Medtronic Spine/Ortho [id number] / / Set Screw 3dx - [id number] Implanted:Qty: 6 on 09/12/2012 at [facility] N/A: Spine Medtronic Spine/Ortho [id number]# / / Screw Thin Crest 6.5x45mm - [id number] Implanted:Qty: 6 on 09/12/2012 at [facility] N/A: Spine Medtronic Spine/Ortho [id number]# / / Cnnctr Tsrh 3dx Sm - [id number] Implanted:Qty: 6 on 09/12/2012 at [facility] N/A: Spine Medtronic Spine/Ortho [id number]# / / Spacer Capstone Peek 09x26 - [id number] Implanted:Qty: 1 on 09/12/2012 at [facility] N/A: Spine Medtronic Spine/Ortho [id number]# / / [id number] Spacer Capstone Peek 09x26 - [id number] Implanted:Qty: 1 on 09/12/2012 at [facility] N/A: Spine Medtronic Spine/Ortho [id number]# / / [id number] Bone Canclls Crushed 60cc - [id number] Implanted:Qty: 1 on 09/12/2012 at [facility] Explanted:at [facility] (Quantity not on file) N/A: Spine Musculoskeletal Transplant 04/05/2015 [id number]# / [id number] / Set Screw Lmbr Tsrh 3dx - [id number] Implanted:Qty: 6 on 02/24/2019 by Barrett Ashby MD at [facility] N/A: Spine Medtronic Spine/Ortho [id number]# / / Cnnctr Lmbr Sm Tsrh 3dx Offsettitnm - [id number] Implanted:Qty: 6 on 02/24/2019 by Barrett Ashby MD at [facility] N/A: Spine Medtronic Spine/Ortho [id number]# / / Screw Lmbr Post 6.5x45mm Tsrh 3dx Og Thin Va - [id number] Implanted:Qty: 2 on 02/24/2019 by Barrett Ashby MD at [facility] N/A: Spine Medtronic Spine/Ortho [id number]# / / Meg Lmbr 90x5.5mm Tsrh 3d Cvd Titnm - [id number] Implanted:Qty: 2 on 02/24/2019 by Barrett Ashby MD at [facility] N/A: Spine Medtronic Spine/Ortho [id number]# / / [id number] bone 1-4mm 30cc Medtronic Chips Canclls Freeze Dried Implanted:Qty: 1 on 02/24/2019 by Barrett Ashby MD at [facility] Explanted:at [facility] (Quantity not on file) N/A: Spine Medtronic Spine/Ortho 07/25/2023 [id number]# / [id number] / [id number] bone Matrix 1cc Alba Dbf Putty Dbm Implanted:Qty: 1 on 02/24/2019 by Barrett Ashby MD at [facility] Explanted:at [facility] (Quantity not on file) N/A: Spine Medtronic Spine/Ortho 10/07/2019 [id number] / [id number] / Spacer Lmbr [id number] Capstone Tlif Peek - [id number] Implanted:Qty: 1 on 02/24/2019 by Barrett Ashby MD at [facility] N/A: Spine Medtronic Spine/Ortho 04/30/2021 [id number]# / / [id number] 88bone Cerv 5mm 4 Deg Grey Eagle W/P Implanted:Qty: 1 on 03/06/2023 at [facility] N/A: Spine Grey Eagle Spine 06/26/2027 [id number] / [id number] / Randolph Anterior Cervical Screws Self-Starting Variable Screw 4.0mm X 12mm Implanted:Qty: 6 on 03/06/2023 by Barrett Ashby MD at [facility] N/A: Spine [id number] / / Description:OZARK Anterior C ervical Screws Self-Starting Variable Screw 4.0mm x 12mm Randolph View Anterior Cervical Plates Constrained 2 Level 34 Mm Implanted:Qty: 1 on 03/06/2023 by Barrett Ashby MD at [facility] N/A: Spine [id number] / / Description:OZARK VIEW Anter ior Cervical Plates Constrained 2 Level 34 mm Bone Matrix 1cc Dbx Paste Dbm - [id number] Implanted:Qty: 1 on 03/06/2023 by Barrett Ashby MD at [facility] N/A: Spine Musculoskeletal Transplant 11/12/2024 [id number] / [id number] / Bone Cerv 6mm 4 Deg Tomeka W/P - [id number] Implanted:Qty: 1 on 03/06/2023 by Barrett Ashby MD at [facility] N/A: Spine Tomeka Spine 12/03/2027 [id number] / [id number] / Explanted Type Area Office Coordinator Device Identifier Shelf Expiration Date Model / Serial / Lot Explant Explanted:Qty: 1 on 02/24/2019 at [facility] N/A: Spine Description:MEG X2 CONNECTOR X6 SCREW X2 Procedures Procedure Name Priority Date/Time Associated Diagnosis Comments ANTI HCV Routine 10/05/2014 8:52 AM CDT Need for hepatitis C screening test XR DXA BONE DENSITY 2 SITES AXIAL Routine 01/30/2007 2:52 PM OTORHINOLARYNGOLOGIST Long-Term Use Steroids from Last 3 Months or Most Recently Relevant to Health Maintenance Results * ANTI HCV [23175.2] (10/05/2014 8:52 AM CDT) HEPATITIS C ANTIBODY Non-Reacti ve Non-Reacti ve 10/05/2014 2:49 PM CDT [facility] Blood specimen (specimen) BLOOD SPECIMEN / Unknown Venipuncture / Unknown 10/05/2014 8:52 AM CDT 10/05/2014 8:53 AM CDT Narrative [facility] - 10/05/2014 2:49 PM CDT Antibodies to HCV not detected; does not exclude the possibility of exposure to HCV. us Colton Lowe MD SEND OUTS Final Result [facility] [address] [place] [address], [place] * XR DEXA BONE DENSITY 2 SITES (01/30/2007 2:52 PM OTORHINOLARYNGOLOGIST) Anatomical Region Laterality Modality Spine, HIPS, HIPL, HIPR Other 01/30/2007 2:52 PM OTORHINOLARYNGOLOGIST Narrative 02/03/2007 10:00 AM OTORHINOLARYNGOLOGIST Please see scanned document for results of this study. Procedure Note Monica Huizar D - 02/03/2007 Please see scanned document for results of this study. us Moreno Renteria MD DEXA Final Result from Last 3 Months or Most Recently Relevant to Health Maintenance Insurance [place] [id number] MEDICARE PB ONLY MEDICARE PART A HB ONLY MEDICARE PART B HB ONLY Advance Directives * Full Code (Latest Code [...] 6:01 AM 09/12/2012 2:40 PM Care Teams Special Effects Makeup Artist Relationship Specialty Start Date End Date Nancy Escudero DO [address] [place] [address] PCP - General Family Practice 12/26/22
[2024-08-22 21:37] VITALS: BP 144/87; PULSE 83; RESP 16; TEMP 36.8; O2SAT 97; BMI 22.3
--- NOTE | 2024-08-22 21:49 | CRLHL7_ITS ---
For Patients: As a result of the Cures Act, medical imaging exams and procedure reports are released immediately into your electronic medical record. You may view this report before your referring provider. If you have questions, please contact your health care provider. Indication: Left shoulder pain. Technique: Left shoulder 3 views. Comparison: None. Findings: Bones: No acute fracture or dislocation. Joint spaces: Unremarkable. Soft tissues: Atherosclerotic calcifications of the aortic arch. Impression: No acute fracture or dislocation. Dictated by Jag Dent MD @ 08/22/2024 11:22:48 PM (Electronically Signed)
--- NOTE | 2024-08-22 22:01 | ED.GENADULT ---
HPI - General Adult General Chief complaint: Shoulder Injury/Pain Stated complaint: left shoulder pain Time Seen by Provider: 08/22/24 21:44 Source: patient Mode of arrival: ambulatory Limitations: no limitations History of Present Illness HPI narrative: 79-year-old female presenting today with left shoulder pain. Patient states that she fell approximately 1 and half weeks ago. She tripped and fell forward flat on her face she states. Since then she has been having constant left-sided shoulder pain. She states that today the pain was unbearable when she was trying to sleep so she came into the ER for evaluation. The pain is located across the top of the shoulder. She has limited mobility of that shoulder because of the discomfort. She states that she had surgery almost a year ago because she had a muscle tear in that shoulder. However, looking through her records it appears that it was only last December that she had a arthroscopic rotator cuff repair, distal clavicle excision, glenohumeral debridement, bursectomy and subacromial decompression acromioplasty. She denies headache, nausea or vomiting. She states that she has been healing just fine from the fall otherwise. But her shoulder continues to really bother her. Related Data Home Medications ?Medication ?Instructions ?Recorded ?Confirmed atorvastatin 40 mg tablet 40 mg PO DAILY 01/03/23 01/16/24 losartan 50 mg tablet 50 mg PO DAILY 01/03/23 01/16/24 metoprolol tartrate 50 mg tablet 50 mg PO BID 01/03/23 01/16/24 mirtazapine 15 mg tablet 15 mg PO BID 01/03/23 01/16/24 potassium chloride 20 mEq 20 meq PO DAILY 01/03/23 01/16/24 tablet,extended release(part/cryst) acetaminophen 500 mg tablet 500 mg PO Q6H PRN 01/18/23 01/16/24 (Tylenol Extra Strength) gabapentin 300 mg capsule 300 mg PO 3XD 01/03/24 01/16/24 Previous Rx's ?Medication ?Instructions ?Recorded meclizine 25 mg tablet 25 mg PO TID #12 tabs 05/22/23 ondansetron 4 mg disintegrating 4 mg PO Q8H #15 tabs 01/06/24 tablet Allergies Allergy/AdvReac Type Severity Reaction Status Date / Time Penicillins Allergy Mild Rash Verified 01/16/24 11:14 Review of Systems Status of ROS: Reports: 6 or more systems reviewed and unremarkable except as noted in History and below [facility] Medical History Cervical radiculopathy due to degenerative joint disease of spine ?M47.22 - Other spondylosis with radiculopathy, cervical region (ICD-10) GI (gastrointestinal bleed) (2006) ?K92.2 - Gastrointestinal hemorrhage, unspecified (ICD-10) Benign positional vertigo ?H81.10 - Benign paroxysmal vertigo, unspecified ear (ICD-10) Rheumatoid arthritis ?M06.9 - Rheumatoid arthritis, unspecified (ICD-10) Surgical History History of arthroscopy of left shoulder (01/06/24) ?Z98.890 - Other specified postprocedural states (ICD-10) S/P cervical spinal fusion ?Z98.1 - Arthrodesis status (ICD-10) History of carpal tunnel surgery of right wrist (03/22/05) ?Z98.890 - Other specified postprocedural states (ICD-10) Status post laparoscopic [place] fundoplication (~1989) ?Z98.890 - Other specified postprocedural states (ICD-10) History of arthroplasty of finger of left hand ?Z96.692 - Finger-joint replacement of left hand (ICD-10) History of arthroplasty of finger of right hand ?Z96.691 - Finger-joint replacement of right hand (ICD-10) History of bilateral cataract extraction ?Z98.41 - Cataract extraction status, right eye (ICD-10) ?Z98.42 - Cataract extraction status, left eye (ICD-10) History of excision of mass (06/2012) ?Z98.890 - Other specified postprocedural states (ICD-10) History of lumbar fusion (08/2012) ?Z98.1 - Arthrodesis status (ICD-10) History of hysterectomy ?Z90.710 - Acquired absence of both cervix and uterus (ICD-10) History of arthroscopy of right knee (03/14/09) ?Z98.890 - Other specified postprocedural states (ICD-10) History of total right knee replacement (04/01/09) ?Z96.651 - Presence of right artificial knee joint (ICD-10) History of esophagogastroduodenoscopy (EGD) (05/2007) ?Z98.890 - Other specified postprocedural states (ICD-10) History of cervical spinal arthrodesis (2001) ?Z98.1 - Arthrodesis status (ICD-10) History of laparoscopic cholecystectomy (07/10/13) ?Z90.49 - Acquired absence of other specified parts of digestive tract (ICD-10) Social History Smoking Status: Never smoker Second hand tobacco smoke exposure: No How often do you have a drink containing alcohol: 2-3 times a week How often do you have six or more drinks on one occasion: Never AUDIT-C Alcohol total score: 3 Non-prescribed substance use: denies use Caffeine: Yes Exam Narrative: Exam Narrative: Well-nourished well-developed patient in no acute distress. Alert and oriented. Answers questions appropriately. Mood and affect are appropriate. Thoughts are goal oriented and rational. No tangential or magical thinking noted. Patient speaks in full sentences without needing to catch her breath. Well groomed. HEENT: Normocephalic atraumatic. Extraocular muscles are intact. Conjunctivae are moist without any icterus noted. Moist mucous membranes. Extremities: Shoulder has normal appearance. Without erythema. Patient has tenderness right at the AC joint. She can not elevate the arm above 90? in the coronal plane. She has tenderness of the anterior shoulder with abduction of the arm across the body. She cannot place her hand behind her back. Skin: Well perfused. Const: Vital Signs, click to edit/add: Vital Signs - 24 hr 08/22/24 21:37 Temperature 98.3 F Pulse Rate [Pulse Oximeter] 83 Respiratory Rate 16 Blood Pressure [Ri ght Upper Arm] 144/87 H Pulse Oximetry 97 Oxygen Delivery Me thod Room Air Course Course ED Course: We did go ahead and x-ray the shoulder today to make sure that there was no significant widening at the AC joint or small fracture present. This was unremarkable. Vital Signs Vital signs: Initial Vital Signs Temperature 98.3 F 08/22/24 21:37 Temperature Source Temporal Artery Scan 08/22/24 21:37 Pulse Rate 83 08/22/24 21:37 Respiratory Rate 16 05/31/25 21:37 Blood Pressure 144/87 H 08/22/24 21:37 Blood Pressure Mean 106 H 08/22/24 21:37 Blood Pressure Position Sitting 08/22/24 21:37 Pulse Oximetry 97 08/22/24 21:37 Oxygen Delivery Method Room Air 08/22/24 21:37 Vital Signs Temperature 98.3 F 08/22/24 21:37 Pulse Rate 83 08/22/24 21:37 Respiratory Rate 16 08/22/24 21:37 Blood Pressure 144/87 H 08/22/24 21:37 Pulse Oximetry 97 08/22/24 21:37 Oxygen Delivery Method Room Air 08/22/24 21:37 Temperature 98.3 F 08/22/24 21:37 Pulse Rate 83 08/22/24 21:37 Respiratory Rate 16 08/22/24 21:37 Blood Pressure 144/87 H 08/22/24 21:37 Pulse Oximetry 97 08/22/24 21:37 Oxygen Delivery Method Room Air 08/22/24 21:37 Medical Decision Making MDM Narrative Medical decision making narrative: 79-year-old female with shoulder pain after a fall. X-ray unremarkable. Patient does not wish to have any strong pain medication at this time. Imaging Data Shoulder x-ray: Attestation: I have reviewed the pertinent imaging results. Radiologist's impression: Technique: Left shoulder 3 views. Comparison: None. Findings: Bones: No acute fracture or dislocation. Joint spaces: Unremarkable. Soft tissues: Atherosclerotic calcifications of the aortic arch. Impression: No acute fracture or dislocation. Discharge Plan Discharge Clinical Impression: Acute shoulder pain Patient Disposition: Home, Self-Care Condition: Stable Additional Instructions: Okay to use Tylenol as directed. Do not use more than 3000 mg of Tylenol in a 24 hour period. You can take up to 1000 mg at 1 time. Recommend you follow-up with your orthopedic physician this coming week for further management. Your x-ray did not show any acute fractures. If you change of mind about stronger pain medication, you can always contact your primary care doctor. Prescriptions: No Action acetaminophen [Tylenol Extra Strength] 500 mg tablet 500 mg PO Q6H PRN meclizine 25 mg tablet 25 mg PO TID Qty: 12 0RF losartan 50 mg tablet 50 mg PO DAILY atorvastatin 40 mg tablet 40 mg PO DAILY metoprolol tartrate 50 mg tablet 50 mg PO BID mirtazapine 15 mg tablet 15 mg PO BID potassium chloride 20 mEq tablet,ER particles/crystals 20 meq PO DAILY gabapentin 300 mg capsule 300 mg PO 3XD ondansetron 4 mg tablet,disintegrating 4 mg PO Q8H Qty: 15 1RF Follow Up/Referrals: Nancy Escudero DO [Primary Care Provider, Family Practice] Stand Alone Forms: [facility] Info Instructions
== END 2024-08-22 23:30 | disposition home or self-care (01) ==
PROVIDERS: Emergency Provider Family Medicine; PCP Family Medicine
DX: M25.512 Pain in left shoulder (principal); W01.0XXA Fall on same level from slipping, tripping and stumbling without subsequent striking against object, initial encounter
CPT/HCPCS: 73030; 99283; 99284

== ENCOUNTER 2024-09-17 09:59 | Outpatient (CLI) | payer MEDICARE, OTHER, SELFPAY ==
--- NOTE | 2024-09-17 10:15 | MR_ITS ---
[address] [address] Phone:?[phone] Fax:?[phone] Referring Physician Information: Bryon Velez [address] [facility] [address] Phone:?[phone] Fax:?[phone] Patient:Dana Sullivan D.O.B:?1945 Sex:?Female Phone:?[phone] [facility] MRN:?[id number] Exam Date:?09/17/2024 EXAM: MRI EXAMINATION OF THE LEFT SHOULDER CLINICAL INFORMATION: Left shoulder pain. History of surgery. Possible rotator cuff tear. TECHNICAL INFORMATION: Coronal STIR as well as axial, sagittal and coronal PD and T2-weighted images acquired. Comparison is made with January 16, 2023. INTERPRETATION: Bones: There is no Hill-Sachs impaction deformity. Postsurgical appearance of acromioplasty and AC joint resection. There is an apparent interval surgical change of biceps tenodesis surgery. No evidence for an occult fracture or AVN. Rotator Cuff: There are mild to moderate changes of supraspinatus tendinopathy. Mild infraspinatus tendinopathy. Series 9 image 5 as well as series 5 image 13 demonstrate a shallow 4 mm intrasubstance partial tear involving the junction of the supraspinatus and infraspinatus tendons, just proximal to their insertions. The teres minor tendon is intact. The subscapularis tendon is intact. No appreciable rotator cuff muscle belly atrophy. Coracoacromial arch: Postsurgical appearance of acromioplasty. The bony acromiohumeral interval is measuring 9 mm. There is no thickening identified of the coracoacromial ligament. Acromioclavicular joint: Status post AC joint resection. No deformity of the underlying supraspinatus tendon. Moderate fluid signal within the subacromial bursa. Biceps tendon: There is an apparent interval change of biceps tenodesis surgery. Marked appearing attenuation of tendon fibers approaching the tenodesis site. Glenohumeral joint and labrum: There is a small to moderate glenohumeral joint effusion. No discrete loose body within the joint. No chondral defect or advanced chondromalacia involving the glenohumeral joint. There is tearing and fraying involving the superior aspect of the labrum. Tear appears present involving the anteroinferior labrum. No discrete paralabral cyst is identified. CONCLUSION: 1. Mild to moderate supraspinatus and mild infraspinatus tendinopathy. There is a small and shallow intrasubstance partial tear involving the junction of the tendons. 2. The subacromial space is well decompressed following acromioplasty and AC joint resection. There is moderate fluid signal within the subacromial bursa. 3. Apparent interval change of biceps tenodesis surgery. Marked appearance attenuation of the tendon fibers approaching the tenodesis site. 4. No evidence for a glenohumeral chondral defect or advanced chondromalacia. There is a small to moderate joint effusion. 5. Tearing and fraying of the superior labrum. Tear appears present of the anterior inferior labrum. No paralabral cyst. KES Electronically signed on 09/17/2024 2:53:00 PM by Nate Munoz M.D.
--- OUTSIDE RECORDS SUMMARY | 2024-09-18 00:51 | XMS_ITS | Clinical Summary ---
Author Organization [facility] Address [address] [place] [address] Care Team Providers Care Learning And Development Associate Name Role Phone Nancy Escudero DO Primary Care Provider [phone] Allergies Active Allergy Reactions Criticality Noted Date Comments Penicillins Rash 09/13/2006 Medications acetaminophen (TYLENOL EXTRA STRGTH) 500 mg tabletIndications :Cervical stenosis of spine Take 2 Tablets (1,000 mg) by mouth every 6 hours if needed for Pain. Max acetaminophen dose: 4000mg in 24 hrs. 50 Tablet 03/07/20 23 11:10 AM RENAL DIALYSIS TECHNICIAN 023 Active mirtazapine (REMERON) 15 mg tabletIndications :Insomnia, unspecified type TAKE 2 TABLETS(30 MG) BY MOUTH AT BEDTIME 180 Tablet 1 025 Active metoprolol tartrate (LOPRESSOR) 50 mg tabletIndications :Essential hypertension Take 1 Tablet (50 mg) by mouth two times daily. 180 Tablet 3 025 Active losartan (COZAAR) 50 mg tabletIndications :Essential hypertension Take 1.5 Tablets (75 mg) by mouth once daily. 135 Tablet 3 025 Active atorvastatin (LIPITOR) 40 mg tabletIndications :Mixed hyperlipidemia TAKE 1 TABLET(40 MG) BY MOUTH EVERY DAY 90 Tablet 3 025 Active potassium chloride 20 mEq extended-release tablet (part/cryst)Indic ations:Essential hypertension TAKE 1 TABLET(20 MEQ) BY MOUTH TWICE DAILY WITH MEALS 180 Tablet 025 Active potassium chloride (KLOR-CON M20) 20 mEq extended-release tablet (part/cryst)Indic ations:Essential hypertension TAKE 1 TABLET(20 MEQ) BY MOUTH TWICE DAILY WITH MEALS 180 Tablet 025 2024 Discontinued Active Problems Problem Noted Date Diagnosed Date [...] dexa 01/29, no, due in 5 years. long term acute care registered nurse (current) use of anticoagulants 04/07/2009 05/11/2009 Overview (04/07/2009): INR Goal: 1.8 - 2.5 Potassium deficiency 03/08/2009 010 Anxiety state, unspecified 09/28/2006 0 04/27/2008 EXERTIONAL DYSPNEA 9 Pure hyperglyceridemia 04/27 Rheumatoid arthritis(714.0) 04/27/2008 SLEEP DISTURBANCE / INSOMNIA 04/27/2008 FATIGUE 04/27/2008 EXERTIONAL LEG DISCOMFORT Encounters Date Type Department Care Team Description 08/31/2024 Refill [facility] [address] [place] [address] Nancy Escudero, Refill Request (Potassium Chloride) from Last 3 Months Immunizations Immunization Administration [...] 3 Zoltan Rubin Alive Twin Brother 4 Ryan Rubin Alive Daughter 1 Shilpa Garcia Alive Daughter [...] on file Legal Sex Female 5:26 AM RENAL DIALYSIS TECHNICIAN Gender Identity Not on file Sexual Orientation [...] Comments Blood Pressure 116/72 05/18/2024 12:52 PM RENAL DIALYSIS TECHNICIAN Pulse 59 05/18/2024 12:52 PM RENAL DIALYSIS TECHNICIAN Temperature 36.7 C (98.1 F) 05/18/2024 12:52 PM RENAL DIALYSIS TECHNICIAN Respiratory Rate 16 03/07/2023 8:11 AM RENAL DIALYSIS TECHNICIAN Oxygen Saturation 96% 05/18/2024 12:52 PM RENAL DIALYSIS TECHNICIAN Inhaled Oxygen Concentration - - Weight 54.7 kg (120 lb 8 oz) 04/08/2024 1:54 PM RENAL DIALYSIS TECHNICIAN Height 149.9 cm (4' 11) 03/06/2023 10:30 AM RENAL DIALYSIS TECHNICIAN Body Mass Index 24.34 03/06/2023 10:30 AM RENAL DIALYSIS TECHNICIAN Plan of Treatment Health Maintenance Due Date [...] this topic Medical Devices Implanted Type Area Visual C Developer Device Identifier Shelf Expiration Date Model / Serial / Lot Meg 7.0cmx5.5mm Pre-Cut - [id number] Implanted:Qty: 2 on 09/12/2012 at [facility] Spine Implants N/A: Spine Medtronic Spine/Ortho [id number] / / Set Screw 3dx - [id number] Implanted:Qty: 6 on 09/12/2012 at [facility] N/A: Spine Medtronic Spine/Ortho [id number] / / Screw Thin Crest 6.5x45mm - [id number] Implanted:Qty: 6 on 09/12/2012 at [facility] N/A: Spine Medtronic Spine/Ortho [id number] / / Cnnctr Tsrh 3dx Sm - [id number] Implanted:Qty: 6 on 09/12/2012 at [facility] N/A: Spine Medtronic Spine/Ortho [id number] / / Spacer Capstone Peek 09x26 - [id number] Implanted:Qty: 1 on 09/12/2012 at [facility] N/A: Spine Medtronic Spine/Ortho [id number]# / / [id number] Spacer Capstone Peek 09x26 - [id number] Implanted:Qty: 1 on 09/12/2012 at [facility] N/A: Spine Medtronic Spine/Ortho [id number]# / / [id number] Bone Canclls Crushed 60cc - [id number] Implanted:Qty: 1 on 09/12/2012 at [facility] Explanted:at [facility] (Quantity not on file) N/A: Spine Musculoskeletal Transplant 04/05/2015 [id number] / [id number] / Set Screw Lmbr Ts 3dx - [id number] Implanted:Qty: 6 on 02/24/2019 by Barrett Ashby MD at [facility] N/A: Spine Medtronic Spine/Ortho [id number]# / / Cnnctr Lmbr Sm Ts 3dx Offsettitnm - [id number] Implanted:Qty: 6 on 02/24/2019 by Barrett Ashby MD at [facility] N/A: Spine Medtronic Spine/Ortho [id number]# / / Screw Lmbr Post 6.5x45mm Ts 3dx Og Thin Va - [id number] Implanted:Qty: 2 on 02/24/2019 by Barrett Asbhy MD at [facility] N/A: Spine Medtronic Spine/Ortho [id number]# / / Meg Lmbr 90x5.5mm Tsrh 3d Cvd Titnm - [id number] Implanted:Qty: 2 on 02/24/2019 by Barrett Ashby MD at [facility] N/A: Spine Medtronic Spine/Ortho [id number]# / / [id number] bone 1-4mm 30cc Medtronic Chips Canclls Freeze Dried Implanted:Qty: 1 on 02/24/2019 by Barrett Ashby MD at [facility] Explanted:at [facility] (Quantity not on file) N/A: Spine Medtronic Spine/Ortho 07/25/2023 [id number] / [id number] / [id number] bone Matrix 1cc Story Dbf Putty Dbm Implanted:Qty: 1 on 02/24/2019 by Barrett Ashby MD at [facility] Explanted:at [facility] (Quantity not on file) N/A: Spine Medtronic Spine/Ortho 10/07/2019 [id number] / [id number] / Spacer Lmbr [id number] Capstone Tlif Peek - [id number] Implanted:Qty: 1 on 02/24/2019 by Barrett Ashby MD at [facility] N/A: Spine Medtronic Spine/Ortho 04/30/2021 [id number]# / / [id number] 88bone Cerv 5mm 4 Deg [place] W/P Implanted:Qty: 1 on 03/06/2023 at [facility] N/A: Spine [place] Spine 06/26/2027 [id number] / [id number] / [place] Anterior Cervical Screws Self-Starting Variable Screw 4.0mm X 12mm Implanted:Qty: 6 on 03/06/2023 by Barrett Ashby MD at [facility] N/A: Spine [id number] / / Description:OZARK Anterior C ervical Screws Self-Starting Variable Screw 4.0mm x 12mm [place] View Anterior Cervical Plates Constrained 2 Level 34 Mm Implanted:Qty: 1 on 03/06/2023 by Barrett Ashby MD at [facility] N/A: Spine [id number] / / Description:[place]ZARK VIEW Anter ior Cervical Plates Constrained 2 Level 34 mm Bone Matrix 1cc Dbx Paste Db - [id number] Implanted:Qty: 1 on 03/06/2023 by Barrett Ashby MD at [facility] N/A: Spine Musculoskeletal Transplant 11/12/2024 [id number] / [id number] / Bone Cerv 6mm 4 Deg [place] W/P - [id number] Implanted:Qty: 1 on 03/06/2023 by Barrett Ashby MD at [facility] N/A: Spine [place] Spine 12/03/2027 [id number] / [id number] / Explanted Type Area Visual C Developer Device Identifier Shelf Expiration Date Model / Serial / Lot Explant Explanted:Qty: 1 on 02/24/2019 at [facility] N/A: Spine Description:MEG X2 CONNECTOR X6 SCREW X2 Procedures Procedure Name Priority Date/Time Associated Diagnosis Comments ANTI HCV Routine 10/05/2014 8:52 AM CDT Need for hepatitis C screening test XR DXA BONE DENSITY 2 SITES AXIAL Routine 01/30/2007 2:52 PM RENAL DIALYSIS TECHNICIAN Long-Term Use Steroids from Last 3 Months or Most Recently Relevant to Health Maintenance Results * ANTI HCV [34096.2] (10/05/2014 8:52 AM CDT) HEPATITIS C ANTIBODY Non-Reacti ve Non-Reacti ve 10/05/2014 2:49 PM CDT [facility] Blood specimen (specimen) BLOOD SPECIMEN / Unknown Venipuncture / Unknown 10/05/2014 8:52 AM CDT 10/05/2014 8:53 AM CDT Narrative [facility] - 10/05/2014 2:49 PM CDT Antibodies to HCV not detected; does not exclude the possibility of exposure to HCV. us Colton Lowe MD SEND OUTS Final Result [facility] [address] [place] [address], * XR DEXA BONE DENSITY 2 SITES (01/30/2007 2:52 PM RENAL DIALYSIS TECHNICIAN) Anatomical Region Laterality Modality Spine, HIPS, HIPL, HIPR Other 01/30/2007 2:52 PM RENAL DIALYSIS TECHNICIAN Narrative 02/03/2007 10:00 AM RENAL DIALYSIS TECHNICIAN Please see scanned document for results of this study. Procedure Note Monica Huizar - 02/03/2007 Please see scanned document for results of this study. us Moreno Renteria MD DEXA Final Result from Last 3 Months or Most Recently Relevant to Health Maintenance Insurance MEDICARE [place] ONLY MEDICARE PART A HB [...] 6:01 AM 09/12/2012 2:40 PM Care Teams Learning And Development Associate Relationship Specialty Start Date End Date Nancy Escudero DO [address] [place] [address] PCP - General Family Practice 12/26/22
== END 2024-09-17 10:00 | disposition home or self-care (01) ==
LOC: MRI 10:01
PROVIDERS: PCP Family Medicine; Visit Provider Physician Assistant Surgical
DX: M25.512 Pain in left shoulder (principal); M75.102 Unspecified rotator cuff tear or rupture of left shoulder, not specified as traumatic; S43.432A Superior glenoid labrum lesion of left shoulder, initial encounter; Z98.890 Other specified postprocedural states
CPT/HCPCS: 73221

== ENCOUNTER 2025-03-23 15:03 | Outpatient (CLI) | payer MEDICARE, OTHER, SELFPAY ==
--- NOTE | 2025-03-23 15:30 | MR_ITS ---
[facility] [address] [facility] [address] Phone:?[phone] Fax:?[phone] Referring Physician Information: Bryon Velez [address] [facility] [address] Phone:?[phone] Fax:?[phone] Patient:Dana Sullivan D.O.B:?1945 Sex:?Female Phone:?[phone] [facility] MRN:?[id number] Exam Date:?03/23/2025 EXAM: MRI OF THE LEFT SHOULDER CLINICAL INFORMATION: The patient is a 79-year-old with left shoulder pain. Evaluate for rotator cuff tear. PRIOR SURGERY: The patient has a history of prior surgery to the region. COMPARISON STUDIES: Comparison is made to the prior MRI examination dated 09/17/2024. TECHNICAL INFORMATION: Imaging was performed on a high-field, 1.5 Vijaya MR scanner. Coronal proton-density and fat-suppressed proton-density imaging of the left shoulder was performed in addition to sagittal fat-suppressed proton- density and sagittal T2 imaging. Axial proton-density and fat-suppressed proton- density imaging was also performed. FINDINGS: Articular/Extraarticular collections: Effusion: Mild. Subacromial/subdeltoid: Mild fluid is seen within the subacromial/subdeltoid bursa, in keeping with mild bursitis or pseudobursitis. Subcoracoid: No evidence for bursitis. Osseous structures: Proximal humerus: Postsurgical changes of the proximal humerus are present, in keeping with prior biceps tenodesis and possible prior rotator cuff repair. No evidence for acute bony injury of the proximal humerus can be seen. There is no evidence for fracture of the greater or lesser tuberosity regions. No Hill-Sachs or reverse Hill-Sachs lesion is identified. Glenoid: No acute bony abnormality of the glenoid fossa or glenoid neck can be seen. Acromioclavicular joint: There is evidence for prior acromioplasty and distal clavicular resection. Coracoacromial arch: Acromion morphology: Type II. No evidence for os acromiale. Acromiohumeral space: Within normal limits. Coracohumeral space: Within normal limits. Rotator cuff and deltoid: Supraspinatus: There is thickening and irregularity of the supraspinatus tendon, in keeping with tendinosis and/or postsurgical change. No evidence for full- thickness tearing or retraction is seen. No atrophic changes of the supraspinatus muscle belly are identified. Infraspinatus: Moderate infraspinatus tendinosis can be seen. There is no evidence for full or partial-thickness tearing. No atrophic changes of the infraspinatus muscle belly are present. Teres minor: No evidence for tendinosis, tearing, or associated muscle belly atrophy. Subscapularis: Moderate subscapularis tendinosis can be seen. There is no evidence for full or partial-thickness tearing. No atrophic changes of the subscapularis muscle belly are noted. Deltoid: No evidence for strain or tearing. Biceps tendon: There is evidence for prior biceps tenodesis. The biceps tendon appears intact distal to the tenodesis site. Glenohumeral joint and labrum: Articular Cartilage: No chondral injuries along the articular surfaces of the glenohumeral articulation can be seen. No osteoarthritic changes are identified. Labrum: Degeneration, blunting, and irregularity of the glenoid labrum can be seen without definite areas of well-defined tearing. No paralabral ganglion cyst formation is noted. Capsular Soft Tissues: Thickening of the capsular structures of the glenohumeral articulation can be seen in the region of the axillary recess and rotator cuff interval. The findings are in keeping with changes of adhesive capsulitis. CONCLUSION: 1. Tendinosis and/or postsurgical changes of the supraspinatus tendon with additional tendinosis of the infraspinatus and subscapularis. There is no full- thickness tearing or retraction of the rotator cuff. 2. Status post biceps tenodesis. 3. Status post acromioplasty and distal clavicular resection. 4. No osteoarthritic changes of the glenohumeral articulation are seen. 5. Thickening of the capsular structures, in keeping with changes of adhesive capsulitis. [facility] Electronically signed on 03/24/2025 10:03:00 AM by Babar Ahumada M.D.
== END 2025-03-23 15:04 | disposition home or self-care (01) ==
LOC: MRI 15:05
PROVIDERS: PCP Family Medicine; Visit Provider Physician Assistant Surgical
DX: M25.512 Pain in left shoulder (principal); M75.02 Adhesive capsulitis of left shoulder; S46.102D Unspecified injury of muscle, fascia and tendon of long head of biceps, left arm, subsequent encounter; S49.92XA Unspecified injury of left shoulder and upper arm, initial encounter; Z98.890 Other specified postprocedural states
CPT/HCPCS: 73221